=== PATIENT | female | born 1975 | race Caucasian/White ===

== ENCOUNTER 2020-03-16 17:19 | Outpatient (REF) | payer OTHER, SELFPAY | END 2020-03-16 17:20 | disposition home or self-care (01) | LOC: HO.LAB 17:19 | PROVIDERS: Visit Provider Internal Medicine | DX: Z20.828 Contact with and (suspected) exposure to other viral communicable diseases (principal) | CPT/HCPCS: C9803; U0003 ==

== ENCOUNTER → 2022-01-11 08:18 | Outpatient (BNVA) | payer OTHER, SELFPAY | PROVIDERS: PCP Internal Medicine; Visit Provider Psychiatry & Neurology Neurology | DX: R41.89 Other symptoms and signs involving cognitive functions and awareness (principal); R51.9 Headache, unspecified; M54.2 Cervicalgia; G89.29 Other chronic pain | CPT/HCPCS: 99202 ==

== ENCOUNTER → 2022-03-17 13:49 | Outpatient (BNVA) | payer OTHER, SELFPAY | PROVIDERS: PCP Internal Medicine; Visit Provider Nurse Practitioner Family | DX: R41.89 Other symptoms and signs involving cognitive functions and awareness (principal); R51.9 Headache, unspecified; M54.2 Cervicalgia; G89.29 Other chronic pain | CPT/HCPCS: 99212 ==

== ENCOUNTER → 2022-06-09 14:28 | Outpatient (BNVA) | payer OTHER, SELFPAY | PROVIDERS: PCP Internal Medicine; Visit Provider Nurse Practitioner Family | DX: R41.89 Other symptoms and signs involving cognitive functions and awareness (principal); M54.2 Cervicalgia; G89.29 Other chronic pain; R51.9 Headache, unspecified; Z79.899 Other long term (current) drug therapy | CPT/HCPCS: 99212 ==

== ENCOUNTER 2023-02-12 09:19 | Outpatient (AMB) | payer OTHER, SELFPAY ==
--- NOTE | 2023-02-12 09:24 | A.OFFVIS_ITS ---
Intake Vital Signs 02/12/23 09:31 Weight 298 lb 4 oz BP 102/76 Blood Pressure Location Lt brachial Position Sitting Pulse 80 Pulse Source Pulse Oximeter Pulse Oximetry (%) 95 Oxygen Delivery Method Room Air Intake Visit Reasons: FOLLOW UP Intake Note: F/U DOLLY. Yard Assistant Required: No Allergies adhesive Allergy (Intermediate, Verified 02/12/23 09:25) Unknown codeine Allergy (Intermediate, Verified 02/12/23 09:25) Unknown HPI HPI Comments History of Present Illness Details 46 y/o female patient presents for follo w up of chronic headache, cervicalgia and cognitive changes. Pt reports daily pressure headache's frequency has decreased to 3 and milder. She has not have severe headache, uses her prn medicaton rarely. She uses naproxen rarely. But she takes meloxicam for shoulder pain. She is on physical therapy twice a week. Pt reports melatonin caused vivid dreams and she stopped it. She has orthopedic appointment for left shoulder pain next week. She had shoulder ligament tear. Cervical X ray result reviewed. Straightening of the normal cervical lordosis and minimal levoscoliosis can be positional or secondary to muscle spasm. She still can have some expressive difficulties, mixed up words, but no difficulty comprehending, reading and writing. Mixing up words happens more when she has fibromyalgia flare up. She has frequent short term memory issues. she has trouble remembering if she does not write down. She is compliant with CPAP, and followed by Sleep Medicine Services. Pt has routine sleep schedule but has get tiredness in the evening. [facility] Medical History Chronic headaches Endometrial cancer GERD (gastroesophageal reflux disease) Hypothyroid Obesity Obstructive sleep apnea on CPAP Retinoblastoma, bilateral Surgical History H/O right knee surgery H/O: hysterectomy History of facial surgery Family History Mother Diabetes H/O eye surgery Father Diabetes Lung cancer Sister Leiomyosarcoma Social History (Updated 02/12/23 @ 09:31 by Tami Joe CMA) Alcohol intake: current Alcohol intake frequency: holidays/special occasions only Patient Tobacco Use Status: Never used Tobacco Review of Systems Const All systems reviewed & are unremarkable except as noted in HPI and below Physical Exam Vital Signs: Last Vital Signs Pulse 80 02/12/23 09:31 BP 102/76 02/12/23 09:31 Pulse Ox 95 02/12/23 09:31 Oxygen Delivery Method Room Air 02/12/23 09:31 Const General: cooperative and no acute distress Nutritional Appearance: obese morbidly obese Orientation/consciousness: patient oriented x3 HEENT Face and sinus: Yes Flattened naso-labial fold present Throat: Yes other (mallampatti grade 4) Neck Other: severe tightness and tenderness in matt cervical muscles Neuro Other: right eye laterally deviated General: patient oriented x3 Cranial nerves: Yes CN's II-XII intact bilaterally, Yes Nystagmus not present and Yes Normal facial strength present Cognition (Neuro): normal cognition Speech: Other speech findings present (Neuro) (normal) Gait exam (Neuro): Normal gait present Motor exam (neuro): 5/5 motor strength present throughout, Pronator motor fun ction not present, no tremor noted and Normal motor muscle tone present throughout Deep tendon reflexes (DTR's): Right triceps reflex intensity grade: 1+, Left triceps reflex intensity grade: 1+, Rt Biceps (C5, C6): 1+, Left biceps reflex intensity grade: 1+, Right brachioradialis reflex intensity grade: 1+, Left brachioradialis reflex intensity grade: 1+, Right patellar reflex intensity grade: 1+ and Left patellar reflex intensity grade: 1+ Coordination: [id number] test normal Psych Affect: normal affect Assessment & Plan Assessment & Plan (1) Cognitive change: Comment: multifactorial, poor sleep, mood disorder etc Code(s): R41.89 - Other symptoms and signs involving cognitive functions and awareness (2) Cervicalgia: Code(s): M54.2 - Cervicalgia (3) Chronic headaches: Comment: likely cervicogenic Code(s): R51.9 - Headache, unspecified; G89.29 - Other chronic pain Plan Continue to take magneisum 400 mg qHS and baclofen 10 mg qHS. Continue vitamin B2 400 mg q daily. Continue to do PT exercise at home. Medications: Refilled magnesium oxide 400 mg PO BEDTIME 30 tabs 6RF baclofen 10 mg PO BEDTIME 90 tabs 0RF 90 days riboflavin (vitamin B2) 400 mg PO DAILY 30 tabs 3RF 30 days Coding Level of Care Code Est Pt Level 3 (84085) Diagnoses Cognitive change R41.89 Cervicalgia M54.2 Chronic headaches R51.9; G89.29
[2023-02-12 09:31] VITALS: BP 102/76; PULSE 80; O2SAT 95
== END 2023-02-12 09:54 | disposition home or self-care (01) ==
PROVIDERS: PCP Internal Medicine; Visit Provider Nurse Practitioner Family
DX: R41.89 Other symptoms and signs involving cognitive functions and awareness (principal); M54.2 Cervicalgia; R51.9 Headache, unspecified; G89.29 Other chronic pain
CPT/HCPCS: 99213

== ENCOUNTER → 2023-02-12 09:19 | Outpatient (BNVA) | payer OTHER, SELFPAY | PROVIDERS: PCP Internal Medicine; Visit Provider Nurse Practitioner Family | DX: R41.89 Other symptoms and signs involving cognitive functions and awareness (principal); R51.9 Headache, unspecified; M54.2 Cervicalgia; G89.29 Other chronic pain | CPT/HCPCS: 99212 ==

== ENCOUNTER 2023-12-19 10:15 | Outpatient (AMB) | payer OTHER, SELFPAY ==
--- NOTE | 2023-12-19 10:32 | MHC.OFFVIS ---
Vital Signs 12/19/23 10:34 Height 5 ft 1 in Weight 302 lb BMI 57.1 BP 138/82 Blood Pressure Location Rt brachial Position Sitting Pulse 111 H Pulse Source Pulse Oximeter Pulse Oximetry (%) 98 Oxygen Delivery Method Room Air Intake Visit Reasons: FOLLOW UP-LVM Intake Note: Patient presents for follow up Allergies adhesive Allergy (Intermediate, Verified 12/19/23 10:35) Unknown codeine Allergy (Intermediate, Verified 12/19/23 10:35) Unknown Medication List - Last Reconciled 12/19/23 by JUANITA Harding albuterol sulfate 90 mcg/actuation (ProAir HFA) 2 puffs inhalation Q6H PRN baclofen 10 mg PO BEDTIME 90 days diphenhydramine HCl (Benadryl Allergy) 25 mg PO BID PRN epinephrine 0.3 mL IM fluticasone propion-salmeterol 115-21 mcg/actuation (Advair HFA) 2 puffs inhalation BID magnesium oxide 400 mg PO BEDTIME meloxicam 15 mg PO DAILY riboflavin (vitamin B2) 400 mg PO DAILY 30 days HPI Comments Details: 48-yr-old female presents for f/u visit. Pt denies any significant interval medical changes. Pt reports her headaches are well-controlled on Magnesium and Baclofen. She has stopped Riboflavin. Baseline headache characteristics: Often stabbing/pulsating right sided headache a/w photophobia- stabs subsides and stabs again. Lasts 15 min to 1-2 hrs She does still have neck pain. Can have neck tightness, stiffness, soreness, and crunching.The pain may radiate into her left collarbone region. Sometimes she has mid-posterior neck or mid-back electrical pain that moves up into the upper neck, rarely has moved into the base of the head which caused a headache. She has been noticing mid-back muscle spasms in the last 3-4 months. Her right eye has also been twitching recently. Does have some left hand weakness and numbness x's 6-7 months, and then started having left pins/needles/pain r/t left 1st finger nodule and left shoulder labrum/bicep tear. She is f/b [facility]. Denies other muscle cramps. States her STM comes and goes, mixes her words up more. . [facility] Medical History (Updated 12/19/23 @ 11:21 by JUANITA Harding) Anemia Chronic headaches GERD (gastroesophageal reflux disease) Endometrial cancer Retinoblastoma, bilateral Obstructive sleep apnea on CPAP Hypothyroid Obesity Surgical History H/O: hysterectomy H/O right knee surgery History of facial surgery Family History Mother Diabetes H/O eye surgery Father Diabetes Lung cancer Sister Leiomyosarcoma Social History Alcohol intake: current Alcohol intake frequency: holidays/special occasions only Patient Tobacco Use Status: Never used Tobacco Physical Exam Vital Signs: Last Vital Signs Pulse 111 H 12/19/23 10:34 BP 138/82 12/19/23 10:34 Pulse Ox 98 12/19/23 10:34 Oxygen Delivery Method Room Air 12/19/23 10:34 BMI result Body Mass Index 57.1 Const General: cooperative and no acute distress Orientation/consciousness: patient oriented x3 Resp Effort & Inspection: normal respiratory effort and able to speak in complete sentences Neuro Other: Focal right mid-back T-12 region paraspinal tightness and tenderness. LUE MS 4+/5, RUE MS 5/5, BLE MS 5/5 Decreased LUE hand grasp. BUE light and sharp sensation intact. No tremor. No facial twitching appreciated. Bilateral R > L posterior cervical tightness. Negative bilateral Spurling. No palpable scalp tenderness. General: patient oriented x3 Cranial nerves: Yes CN's II-XII intact bilaterally (w/ exception of dysconjugate gaze w/o diplopia) Cognition (Neuro): normal cognition Deep tendon reflexes (DTR's): Right triceps reflex intensity grade: 1+, Left triceps reflex intensity grade: 1+, Rt Biceps (C5, C6): 1+, Left biceps reflex intensity grade: 1+, Right brachioradialis reflex intensity grade: 1+, Left brachioradialis reflex intensity grade: 1+, Right patellar reflex intensity grade: 1+ and Left patellar reflex intensity grade: 1+ Psych Appearance: grossly normal Mental Status: mental status grossly normal Speech and movement: Normal speech and movement present Affect: normal affect Attitude: cooperative Assessment & Plan Assessment & Plan (1) Cervicalgia: Code(s): M54.2 - Cervicalgia Category: Medical (2) Pain and numbness of left upper extremity: Code(s): M79.602 - Pain in left arm; R20.0 - Anesthesia of skin Category: Medical (3) Facial twitching: Code(s): G51.4 - Facial myokymia Category: Medical (4) Cognitive change: Comment: multifactorial, poor sleep, mood disorder etc Code(s): R41.89 - Other symptoms and signs involving cognitive functions and awareness Category: Medical (5) Chronic headaches: Comment: likely cervicogenic Code(s): R51.9 - Headache, unspecified; G89.29 - Other chronic pain Category: Medical Plan For new onset mid-back pain and neck pain: Increase Baclofen to 10-20mg qhs. Will request previous head/neck imaging. Future considerations- f/u back/neck imaging. For LUE pain, numbness, weakness: BUE EMG/NCS For stabbing headache: Continue Baclofen Continue Magnesium 400mg qhs. For facial twitching: Check labs for common etiologies For cognition: Consider neuro-psych tetsing in f/u. Orders: Orders Complete Blood Count Auto Diff Today D64.9 - Anemia, unspecified, G51.4 - Facial myokymia, M79.602 - Pain in left arm, R20.0 - Anesthesia of skin Creatine Kinase Total Today D64.9 - Anemia, unspecified, G51.4 - Facial myokymia, M79.602 - Pain in left arm, R20.0 - Anesthesia of skin Vitamin D 25-OH (D2 and D3) Today D64.9 - Anemia, unspecified, G51.4 - Facial myokymia, M79.602 - Pain in left arm, R20.0 - Anesthesia of skin IRON PROFILE Today D64.9 - Anemia, unspecified, G51.4 - Facial myokymia, M79.602 - Pain in left arm, R20.0 - Anesthesia of skin Ferritin Today D64.9 - Anemia, unspecified, G51.4 - Facial myokymia, M79.602 - Pain in left arm, R20.0 - Anesthesia of skin NE electromyogram (EMG) Today M54.2 - Cervicalgia, M79.602 - Pain in left arm, R20.0 - Anesthesia of skin NE nerve conduction velocity Today M79.602 - Pain in left arm, R20.0 - Anesthesia of skin Comprehensive Met. Panel Today D64.9 - Anemia, unspecified, G51.4 - Facial myokymia, M79.602 - Pain in left arm, R20.0 - Anesthesia of skin Magnesium Today D64.9 - Anemia, unspecified, G51.4 - Facial myokymia, M79.602 - Pain in left arm, R20.0 - Anesthesia of skin Vitamin B12 and Folate Today D64.9 - Anemia, unspecified, G51.4 - Facial myokymia, M79.602 - Pain in left arm, R20.0 - Anesthesia of skin TSH reflex Free T4 Today D64.9 - Anemia, unspecified, G51.4 - Facial myokymia, M79.602 - Pain in left arm, R20.0 - Anesthesia of skin Erythrocyte Sedimentation Rate Today D64.9 - Anemia, unspecified, G51.4 - Facial myokymia, M79.602 - Pain in left arm, R20.0 - Anesthesia of skin Medications: New diclofenac sodium 50 mg PO BID PRN 60 tabs 1RF back pain or headache 30 days Changed From baclofen 10 mg PO BEDTIME 90 days 90 tabs 1RF To baclofen 20 mg (2 x 10 mg) PO BEDTIME 180 tabs 1RF 90 days Coding Level of Care Code Est Pt Level 4 (05575) Diagnoses Cervicalgia M54.2 Pain and numbness of left upper extremity M79.602; R20.0 Facial twitching G51.4 Cognitive change R41.89 Chronic headaches R51.9; G89.29
[2023-12-19 10:34] VITALS: BP 138/82; PULSE 111; O2SAT 98; BMI 57.1
== END 2023-12-19 11:25 | disposition home or self-care (01) ==
PROVIDERS: Absent Provider Nurse Practitioner Family; PCP Internal Medicine; Visit Provider Nurse Practitioner Family
DX: M54.2 Cervicalgia (principal); M79.602 Pain in left arm; R20.0 Anesthesia of skin; G51.4 Facial myokymia; R41.89 Other symptoms and signs involving cognitive functions and awareness; R51.9 Headache, unspecified; G89.29 Other chronic pain
CPT/HCPCS: 99214

== ENCOUNTER → 2023-12-19 10:15 | Outpatient (BNVA) | payer OTHER, SELFPAY | PROVIDERS: Absent Provider Nurse Practitioner Family; PCP Internal Medicine; Visit Provider Nurse Practitioner Family | DX: M54.2 Cervicalgia (principal); M79.602 Pain in left arm; G89.29 Other chronic pain; G51.4 Facial myokymia; R41.89 Other symptoms and signs involving cognitive functions and awareness; R51.9 Headache, unspecified; D64.9 Anemia, unspecified; R20.0 Anesthesia of skin | CPT/HCPCS: 99212 ==

== ENCOUNTER 2023-12-19 11:44 | Outpatient (REF) | payer OTHER, SELFPAY ==
[2023-12-19 18:15] LABS: Eosinophils Percent Auto 0.1 % (0-4); Imm Gran Abs Auto 0.06 X10*3/uL (0.00-0.03); Imm Gran Pct Auto 0.5 % (0.0-0.4); MANUAL DIFF FLAG SCAN; Red Cell Distribution Width 14.7 % (11.0-16.0); SCAN SMEAR FLAG 1
[2023-12-19 18:16] LABS: Basophils Percent Auto 0.3 % (0-2); Hematocrit 45.9 % (37.0-47.0); Hemoglobin 15.6 g/dl (12.0-16.0); Lymphocytes Absolute Auto 1.2 X10*3/uL (1.2-4.9); Lymphocytes Percent Auto 10.6 % (20-40); Mean Corpuscular Hemoglobin 32.1 pg (27.0-33.0); Mean Corpuscular Volume 94.4 fL (80.0-98.0); Monocytes Absolute Auto 0.4 X10*3/uL (0.1-1.2); Monocytes Percent Auto 3.8 % (2-11); Neutrophils Absolute Auto 9.7 x10*3/uL (2.0-8.3); Neutrophils Percent Auto 84.7 % (45-73); PLT CLUMP 1; Red Blood Count 4.86 X10*6/uL (4.20-5.50)
[2023-12-19 18:24] LABS: PLT ABN DIST 1; White Blood Count 11.5 X10*3/uL (4.8-10.8)
[2023-12-19 18:25] LABS: Platelet Count 191 X10*3/uL (160-400)
[2023-12-19 18:36] LABS: Alanine Aminotransferase 27 U/L (0-31); Albumin Level 4.7 g/dL (3.5-5.0); Alkaline Phosphatase 93 U/L (39-117); Anion Gap 15 (12-20); Aspartate Amino Transferase 19 U/L (5-31); Bilirubin Total 0.4 mg/dL (0.0-1.0); Blood Urea Nitrogen 14 mg/dL (9-16); Carbon Dioxide 25 mmol/L (22-29); Chloride 105 mmol/L (96-108); Estimated Glomerular Filt Rate > 60; Glucose Random 248 mg/dL (60-115); Iron 105 mcg/dL (30-160); Percent Iron Saturation 33 % (15-50); Potassium 4.6 mmol/L (3.3-5.1); Sodium 140 mmol/L (135-145); Total Iron Binding Capacity 316 mcg/dL (228-428); Total Protein 8.3 g/dL (6.5-8.0); Unsaturated Iron Binding 211 ug/dL
[2023-12-19 18:44] LABS: Ferritin 165 ng/mL (10-250)
[2023-12-19 18:59] LABS: Folate 7.7 ng/mL (> or = 4.0); Vitamin B12 556 pg/mL (200-900)
[2023-12-19 19:27] LABS: SLIDE REVIEW VERIFIED
[2023-12-19 19:42] LABS: Erythrocyte Sedimentation Rate 9 MM/HR (0-20)
[2023-12-24 14:38] LABS: Vitamin D 25-OH, D2 <4 ng/mL; Vitamin D 25-OH, D3 20 ng/mL; Vitamin D 25-OH, Total 20 ng/mL (30-100)
== END 2023-12-19 11:45 | disposition home or self-care (01) ==
LOC: HO.HKASLDS 11:44
PROVIDERS: Visit Provider Nurse Practitioner Family
DX: D64.9 Anemia, unspecified (principal); G51.4 Facial myokymia; M79.602 Pain in left arm; R20.0 Anesthesia of skin
CPT/HCPCS: 36415; 80053; 82306; 82550; 82607; 82728; 82746; 83540; 83735; 84443; 85025; 85652

== ENCOUNTER 2024-01-04 12:44 | Outpatient (REF) | payer OTHER, SELFPAY ==
--- NOTE | 2024-01-04 12:56 | EMG_ITS ---
Chief complaint: Bilateral hand numbness, left worse than right, affecting 4th and 5th digits; neck pain Reason for referral: Evaluate for ulnar neuropathy versus radiculopathy Referred by: Valeria Cullen NP Procedure done: Upper extremity NCS/EMG Precautions and/or limitations: None The limb temperature was monitored continuously and remained between 32-36 degrees C during the performance of the NCS. Nerve Conduction Studies Anti Sensory Summary Table ?Stim Site NR Onset (ms) Norm Onset (ms) Peak (ms) Norm Peak (ms) O-P Amp (?V) Norm O-P Amp Site1 Site2 Delta-0 (ms) Dist (cm) Mauricio (m/s) Norm Mauricio (m/s) Left Median Anti Sensory (2nd Digit) Wrist ? 2.3 2.8 <3.6 46.7 >10 Wrist 2nd Digit 2.3 14.0 61 Right Median Anti Sensory (2nd Digit) Wrist ? 2.3 2.8 <3.6 47.5 >10 Wrist 2nd Digit 2.3 14.0 61 Right Radial Anti Sensory (Thumb) Forearm ? 1.5 2.2 <3.1 29.5 Forearm Thumb 1.5 0.0 Left Ulnar Anti Sensory (5th Digit) Wrist ? 2.3 2.9 <3.7 33.9 >15.0 Wrist 5th Digit 2.3 14.0 61 Right Ulnar Anti Sensory (5th Digit) Wrist ? 2.3 3.0 <3.7 35.4 >15.0 Wrist 5th Digit 2.3 14.0 61 Motor Summary Table ?Stim Site NR Onset (ms) Norm Onset (ms) O-P Amp (mV) Norm O-P Amp iAmp (mV) Amp (1st) (%) Site1 Site2 Delta-0 (ms) Dist (cm) Mauricio (m/s) Norm Mauricio (m/s) Left Median Motor (Abd Poll Brev) Wrist ? 3.0 <3.9 11.8 >4.5 14.8 100.0 Elbow Wrist 3.4 20.5 60 >45 Elbow ? 6.4 11.9 14.7 100.8 Right Median Motor (Abd Poll Brev) Wrist ? 3.0 <3.9 14.2 >4.5 16.4 100.0 Elbow Wrist 3.1 19.5 63 >45 Elbow ? 6.1 13.5 15.9 95.1 Left Ulnar Motor (Abd Dig Minimi) Wrist ? 2.7 <3.0 7.2 >5 8.6 100.0 B Elbow Wrist 3.0 17.5 58 >45 B Elbow ? 5.7 7.5 8.9 104.2 A Elbow B Elbow 1.5 10.0 67 >45 A Elbow ? 7.2 7.9 9.3 109.7 Right Ulnar Motor (Abd Dig Minimi) Wrist ? 2.7 <3.0 7.3 >5 9.5 100.0 B Elbow Wrist 2.7 17.0 63 >45 B Elbow ? 5.4 7.2 9.4 98.6 A Elbow B Elbow 1.6 10.0 63 >45 A Elbow ? 7.0 6.8 9.1 93.2 EMG ?Side Muscle Nerve Root Ins Act Fibs Psw Amp Dur Poly Recrt Int Pat Comment Right 1stDorInt Ulnar C8-T1 Nml Nml Nml Nml Nml 0 Nml Complete Right FlexCarRad Median C6-7 Nml Nml Nml Nml Nml 0 Nml Complete Right Biceps Musculocut C5-6 Nml Nml Nml Nml Nml 0 Nml Complete Right Triceps Radial C6-7-8 Nml Nml Nml Nml Nml 0 Nml Complete Right Deltoid Axillary C5-6 Nml Nml Nml Nml Nml 0 Nml Complete Left 1stDorInt Ulnar C8-T1 Nml Nml Nml Nml Nml 0 Nml Complete Left FlexCarRad Median C6-7 Nml Nml Nml Nml Nml 0 Nml Complete Left Biceps Musculocut C5-6 Nml Nml Nml Nml Nml 0 Nml Complete Left Triceps Radial C6-7-8 Nml Nml Nml Nml Nml 0 Nml Complete Left Deltoid Axillary C5-6 Nml Nml Nml Nml Nml 0 Nml Complete FINDINGS: All motor and sensory nerves tested showed normal latencies, amplitudes and conduction velocities. Concentric needle EMG was performed in selected muscles of the bilateral upper extremities. Study did not reveal signs of electric abnormalities as shown in the table above. IMPRESSION: 1. This is a normal study. 2. There is no electrodiagnostic evidence for median neuropathy, ulnar neuropathy, brachial plexopathy, or cervical radiculopathy. Thank you for your kind referral. Mary Arguelles MD, MISHEL Board Certified, [place] [employer] and [employer] (ABPMR) Board Certified, [place] [employer] Electrodiagnostic Medicine (ABEM) CODIN 45086 x2 MTDD
== END 2024-01-04 12:45 | disposition home or self-care (01) ==
LOC: HO.NEURO 12:44
PROVIDERS: PCP Internal Medicine; Visit Provider Nurse Practitioner Family
DX: M79.602 Pain in left arm (principal); R20.0 Anesthesia of skin; M54.2 Cervicalgia
CPT/HCPCS: 95886; 95911

== ENCOUNTER → 2024-01-04 12:56 | Outpatient (BNV) | payer OTHER, SELFPAY | PROVIDERS: PCP Internal Medicine; Visit Provider Physical Medicine & Rehabilitation | DX: R20.0 Anesthesia of skin (principal); R20.2 Paresthesia of skin; M54.2 Cervicalgia | CPT/HCPCS: 95886; 95911 ==

== ENCOUNTER 2024-06-17 15:15 | Outpatient (REF) | payer OTHER, SELFPAY ==
--- NOTE | ~2024-06-17 | XR_ITS ---
EXAMINATION: XR THORACIC SPINE CLINICAL INFORMATION: M54.9 - Dorsalgia, unspecified COMPARISON: None available. TECHNIQUE: 3 views of the thoracic spine were obtained. FINDINGS: No scoliosis. Normal kyphosis. No fracture, compression deformity, or suspicious bone lesion. Normal alignment. Mild diffuse degenerative disc changes. There is no abnormality of the paraspinal soft tissues, imaged lungs or mediastinum.. XR/XR thoracic spine 3V IMPRESSION: No acute findings thoracic spine. Mild diffuse disc degeneration. Electronically signed by: Jose Velazco MD 06/18/2024 01:10 PM ROX
--- NOTE | ~2024-06-17 | XR_ITS ---
EXAMINATION: XR LUMBOSACRAL SPINE CLINICAL INFORMATION: M54.9 - Dorsalgia, unspecified COMPARISON: None available. TECHNIQUE: 6 views of the lumbar spine, inclusive of bilateral oblique views, were obtained. FINDINGS: No scoliosis. Normal lordosis. Normal alignment. No fracture, subluxation, or suspicious bone lesion. No compression deformity. Mild disc space degeneration L5-S1. Normal facet alignment. No pars defects. Minimal facet degeneration L4-5 and L5-S1. Sacrum and SI joints appear normal. No soft tissue abnormalities. XR/XR lumbar spine 4V min IMPRESSION: 1. No acute findings lumbar spine. 2. Mild degenerative disc facet changes L4-S1. Electronically signed by: Jose Velazco MD 06/18/2024 12:44 PM ROX
--- NOTE | ~2024-06-17 | XR_ITS ---
EXAMINATION: XR CERVICAL SPINE CLINICAL INFORMATION: M54.2 - Cervicalgia COMPARISON: None available. TECHNIQUE: 6 views of the cervical spine, inclusive of flexion and extension views, were obtained. FINDINGS: Craniocervical junction is intact. Marginal osteophyte formation at C4-5 C5-6 and to a lesser extent C6-7 more conspicuous at C5-6. No acute cortical disruption or malalignment. No gross neuroforamina stenosis. No lytic or blastic lesions. Upper airway is patent. Multiple metallic screws in the maxillofacial bones. XR/XR cervical spine 4V IMPRESSION: Multilevel cervical spondylosis more conspicuous at C5-6. Electronically signed by: Jaylen Sy MD 06/18/2024 12:26 PM EST
--- OUTSIDE RECORDS SUMMARY | 2024-06-17 16:09 | XMS_ITS | Clinical Summary ---
Author Organization [facility] Address [address] [place] [address] Phone Care Team Providers Care Buffer Automatic Name Role Phone Kimberli Mtz MD Primary Care Provider [phone] Allergies Active Allergy Reactions Criticality Noted Date Comments Adhesive Rash 06/20/2022 Surgical adhesives Codeine 07/13/2016 Medications albuterol HFA (PROAIR HFA ; PROVENTIL HFA ; VENTOLIN HFA) 90 mcg/actuation inhaler Inhale 2 Puffs into the lungs every 4 hours as needed. Active baclofen (LIORESAL) 5 mg tablet Take 1 Tablet by mouth at bedtime. Active diphenhydrAMINE (BENADRYL) 25 mg tablet Take 1 Tablet by mouth at bedtime as needed for Itching. 2 Active EPINEPHrine (EpiPen 2-Abraham) 0.3 mg/0.3 mL injection Inject 0.3 mg into the muscle as needed for Other (anaphylactic reaction). 2-pack. Fill with whichever brand is covered by insurance. 2 Active fluticasone propion-salmetero L (ADVAIR DISKUS) 500-50 mcg/dose diskus inhaler Inhale 1 Puff into the lungs every 12 hours. Active magnesium oxide (MAG-OX) 400 mg magnesium tablet Take 1 Tablet by mouth daily. Active meloxicam (MOBIC) 15 mg tablet TAKE 1 TABLET BY MOUTH EVERY DAY 3 Active predniSONE (DELTASONE) 1 mg tablet Take 1 Tablet by mouth daily. Active silver sulfADIAZINE (SILVADENE, SSD) 1 % cream Apply small amount to the wound once daily before dressing with bandaid Active naproxen (NAPROSYN) 500 mg tablet Take 1 Tablet by mouth 2 times daily (with meals). Active Active Problems Problem Noted Date Diagnosed Date Primary osteoarthritis of right knee 03/10/2024 Chronic pain of right knee 03/10/2024 Morbid obesity with BMI of 50.0-59.9, adult 01/28 Hyperlipidemia 03/20/2022 Type 2 diabetes mellitus with morbid obesity Endometrial carcinoma 02/22/2021 Overview (02/11/2024): 02/17 [facility] COVID-19 virus infection 07/06/2020 Overview (02/11/2024): Tested positive on 07/06/2020 Arthritis 06/23/2020 Overview (02/11/2024): R knee, bilat hands Asthma 06/23/2020 Elevated LFTs 06/23/2020 Overview (02/11/2024): 05/2020 Fibromyalgia 06/23/2020 Overview (02/11/2024): She notes rheum thinks nerve issues in legs related to fibromyalgia Hypothyroidism 06/23/2020 Overview (02/11/2024): Used to be on levothyroxine, off med for 4-5 years Leg numbness 06/23/2020 Overview (02/11/2024): nerve problems DOLLY (obstructive sleep apnea) 06/23/2020 Overview (02/11/2024): On CPAP, managed in [place] [facility] 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 Diagnosed at , s/p radiation. Follows with eye doctor Venous insufficiency of both lower extremities 0 06/23/2020 Encounters Date Type Department Care Team Description 03/26/2024 1:30 PM EST Procedure visit Orthopedic Surgery - [place] [address] [place] [id number] Franchesca Rea PA Primary osteoarthritis of right knee (Primary Dx); Chronic pain of right knee 03/19/2024 1:30 PM EST Procedure visit Orthopedic Surgery - [place] [address] [place] [phone] Franchesca Rea PA Primary osteoarthritis of right knee (Primary Dx); Chronic pain of right knee from Last 3 Months Immunizations Name Administration Dates Next Due Influenza trivalent, 0.5mL, preservative free (Fluarix; FluLaval; Fluzone) ages 6mo and older (Afluria) 3 years and older 02/05/2020 Pneumococcal polysaccharide 23 valent (Pneumovax 23) 2yo and older 05/24/2022 Tdap Tetanus diptheria acell ular pertussis (Boostrix; Adacel) 7yo and older 07/12/2022 Surgical History Surgery Date Site/Laterality Comments OTHER SURGICAL HISTORY PROCEDURE: ---- OTHER ----; COMMENT: 4 costmetic surgeries due to radiation, involving bone KNEE ARTHROSCOPY 2008 Right PROCEDURE: LA ARTHROSCOPY AID TX SPINE&/FX KNEE W/O FIXJ HYSTEROSCOPY 04/28/2016 PROCEDURE: LA HYSTEROSCOPY BX ENDOMETRIUM&/POLYPC W/WO D&C; COMMENT: Polypectomy, endometrial ablation OTHER SURGICAL HISTORY 01/2021 PROCEDURE: LA TOTAL ABDOMINAL HYSTERECT W/WO RMVL TUBE OVARY; COMMENT: with BSO, endometrial carcinoma Medical History Medical History Date Comments Hypothyroid DX:Hypothyroid Asthma DX:Asthma COVID-19 virus infection 07/06/2020 DX:COVI D-19 virus infection; COMMENT: Tested positive on 07/06/2020 Endometrial carcinoma (CMS/HCC) 02/22/2021 DX:Endometrial carcinoma (HCC); COMMENT: 02/17 [facility] Family History Medical History Relation Name Comments Basal cell carcinoma Father Diabetes Father type II, diet c ontrolled Lung cancer Father tobacco Basal cell carcinoma Mother Diabetes Mother Type II, diet c ontrolled Other: retinoblastoma Mother Breast cancer Sister 1 Doris 50 Other: Leiomyosarcoma Sister 2 Other: retinoblastoma Sister 2 Relation Name Status Comments Father Mother Sister 1 Doris 50 Alive Sister 2 Alive Social History Tobacco Use Types Packs/Day Years Used Date Smoking Tobacco: Never Smokeless Tobacco: Never Alcohol Use Standard Drinks/Week Comments Yes 0 (1 standard drink = 0.6 oz pur e alcohol) Comments Unknown Sex and Gender Information Value Date Recorded Sex Assigned at Not on file Legal Sex Female 12:03 AM EST Gender Identity Not on file Sexual Orientation Not on file Obstetrics History Last Filed Vital Signs Vital Sign Reading Time Taken Comments Blood Pressure 124/77 02/23/2023 11:36 AM EDT Pulse 58 02/23/2023 11:36 AM EDT Temperature - - Respiratory Rate - - Oxygen Saturation - - Inhaled Oxygen Concentration - - Weight 134 kg (296 lb) 03/26/2024 1:48 PM EST Height 152.4 cm (5') 03/26/2024 1:48 PM EST Body Mass Index 57.81 03/26/2024 1:48 PM EST Plan of Treatment Health Maintenance Due Date Last Done Comments Diabetes: Annual Foot Exam 1986 Diabetes: Annual Retina Eye Exam 1986 Hepatitis B Vaccines (1 of 3 - 19+ 3-dose series) 08/02/1995 COVID-19 Vaccine (3 - Pfizer risk series) 10/06/2020 09/08/2020, 08/18/2020 Colorectal Cancer Screening: Colonoscopy 04/08/2022 Depression Screening 04/08/2022 HIV Screening 04/08/2022 Hepatitis C Screening 04/08/2022 Social Influencers of Health Screening 04/08/2022 Diabetes: Blood Sugar Contro l Test (HGBA1C) 11/21/2022 05/24/2022 Diabetes: Annual GFR (Glomerular Filtration Rate) 03/20/2023 03/20/2022 Pneumococcal Vaccine: Pediatrics (0 to 5 Years) and At-Risk Patients (6 to 64 Years) (2 of 2 - PCV) 05/24/2023 05/24/2022 Diabetes: Annual Urine Albumin-Creatinine Ratio (uACR) 07/13/2023 07/12/2022 Influenza Vaccine (#1) 2023 02/05/2020 Breast Cancer Screening 07/17/2025 07/18/19, 04/03/2018 Cholesterol Screening (Lipid Panel) 03/20/2027 03/20/2022 DTaP,Tdap,and Td Vaccines (2 - Td or Tdap) 07/12/2032 07/12/2022 HIB Vaccines Aged Out No longer eligi ble based on patient's age to complete this topic HPV Vaccines Aged Out No longer eligi ble based on patient's age to complete this topic Hepatitis A Vaccines Aged Out No long er eligible based on patient's age to complete this topic IPV Vaccines Aged Out No longer eligi ble based on patient's age to complete this topic MMR Vaccines Aged Out No longer eligi ble based on patient's age to complete this topic Meningococcal ACWY Vaccine Aged Out N o longer eligible based on patient's age to complete this topic Meningococcal B Vacine Aged Out No lo nger eligible based on patient's age to complete this topic RSV Immunization Patients Under 20 months Aged Out No longer eligible b ased on patient's age to complete this topic Varicella Vaccines Aged Out No longer eligible based on patient's age to complete this topic Procedures Procedure Name Priority Date/Time Associated Diagnosis Comments LA ARTHROCENTESIS/ASPI RATION/INJECTION MAJOR JOINT/BURSA W/O U/S GUIDANCE Routine 03/26/2024 1:30 PM EST Primary osteoarthritis of right knee Chronic pain of right knee LA ARTHROCENTESIS/ASPI RATION/INJECTION MAJOR JOINT/BURSA W/O U/S GUIDANCE Routine 03/19/2024 1:30 PM EST Primary osteoarthritis of right knee Chronic pain of right knee [facility] SCREENING DIGITAL Routine 07/18/2023 3:35 PM EDT Encounter for screening mammogram for malignant neoplasm of breast URINE ALBUMIN CREATININE RATIO Routine 07/12/2022 HEMOGLOBIN A1C Routine 05/24/2022 ANNUAL BMP BLOOD TEST Routine 03/20/2022 LIPID PANEL Routine 03/20/2022 from Last 3 Months or Most Recently Relevant to Health Maintenance Results * LA ARTHROCENTESIS/ASPIRATION/INJECTION MAJOR JOINT/BURSA W/O U/S GUIDANCE (03/26/2024 1:30 PM EST) Narrative Franchesca Rea PA - 03/26/2024 1:30 PM EST SAMANTA Wan ? 03/26/2024 ??2:03 PM L Inj/Asp: R knee Indications: pain Details: 22 G needle, anteromedial approach Medications: 20 mg sodium hyaluronate (viscosup) 10 mg/mL(mw 2.4 -3.6 million) Informed Consent: ??Laterality: ??Right ??Relevant images/test results available and reviewed: no ?Health status cleared: ??N/A ??Procedure/treatment, purpose, treatment alternatives, risks/potential complications and benefits explained: yes ?Risk/complications/benefits details: ??Risks and benefits associated with the injection reviewed which can include but not limited to infection, bleeding, bruising, transient synovitis, no improvement in symptoms. ??Patient questions answered: yes ?Patient agrees, verbalizes understanding, and wants to proceed: yes ?Consent given by: ??Patient ??Informed consent discussion completed by Physician/SCOTTY with patient: ?? Verbal ??Pre-procedure timeout performed: yes ?? us Franchesca [facility]/BEDSIDE ORDERABLES Final Result * LA ARTHROCENTESIS/ASPIRATION/INJECTION MAJOR JOINT/BURSA W/O U/S GUIDANCE (03/19/2024 1:30 PM EST) Narrative Franchesca Rea PA - 03/19/2024 1:30 PM EST SAMANTA Wan ? 03/19/2024 ??1:42 PM L Inj/Asp: R knee Indications: pain Details: 22 G needle, anteromedial approach Medications: 20 mg sodium hyaluronate (viscosup) 10 mg/mL(mw 2.4 -3.6 million) Informed Consent: ??Laterality: ??Right ??Relevant images/test results available and reviewed: no ?Health status cleared: ??N/A ??Procedure/treatment, purpose, treatment alternatives, risks/potential complications and benefits explained: yes ?Risk/complications/benefits details: ??Risks and benefits associated with the injection reviewed which can include but not limited to infection, bleeding, bruising, transient synovitis, no improvement in symptoms. ??Patient questions answered: yes ?Patient agrees, verbalizes understanding, and wants to proceed: yes ?Consent given by: ??Patient ??Informed consent discussion completed by Physician/SCOTTY with patient: ?? Verbal ??Pre-procedure timeout performed: yes ?? us Franchesca [facility]/BEDSIDE ORDERABLES Final Result * JODY SCREENING DIGITAL (07/18/2023 3:35 PM EDT) Anatomical Region Laterality Modality Mammography 07/18/2023 11:0 0 AM EDT Narrative 07/18/2023 3:35 PM EDT [facility] Diagnostic Imaging Department [address] [place] [id number] Patient: ??SUSAN HOBBS ?/Age/Sex: 1975 - 47 - F Unit#: ??[id number] ? Location/Status: ??SPDIMAM/REG CLI ? Mnemonic/Ordering Site: ??DIGSC/SPMAM Ordering Physician: ??KIMBERLI MTZ MD Jody Screening Digital - 07/18/23 - 1123 Report Status:Signed EXAM: [facility] Screening Digital EXAM DATE AND TIME: 07/18/2023 11:24 AM HISTORY: ??Screening. Personal history of endometrial carcinoma. Family history of breast carcinoma including sister at age 49, maternal aunt and maternal grandmother. COMPARISON: ??05/08/22, 11/02/21, 05/03/21, 04/03/18 TECHNIQUE: Bilateral digital breast tomosynthesis was performed in the CC and MLO projections. Computer aided detection with [facility] 3D 3.1 was employed. TISSUE DENSITY: b. There are scattered areas of fibroglandular density. FINDINGS: No suspicious masses, grouped microcalcifications, or areas of architectural distortion are seen. The skin and vascularity are unremarkable. IMPRESSION: Stable mammographic appearance of the breasts. ??No evidence of malignancy is seen. A negative mammogram in the presence of a clinically suspicious palpable abnormality does not preclude the possibility of malignancy or alter the indications for biopsy. BI-RADS: ??Category 1: Negative RECOMMENDATION(S): 1: Routine screening mammogram BILATERAL in 1 year. Dictating Physician: ??SHANELLE AGUERO MD Electronically Signed by: ??SHANELLE AGUERO MD Dic Date/Time: ??07/18/23 1534 Sign date/Time: ??07/18/23 1535 Procedure Note Shanelle Aguero MD - 12/17/2023 [facility] Diagnostic Imaging Department [address] [place] [address] Patient: MORRO HOBBSSA Martinez /Age/Sex: 1975 - 47 - F Unit#: [id number] Location/Status: [facility] CLI Mnemonic/Ordering Site: [facility] Ordering Physician: KIMBERLI MTZ MD [facility] Screening Digital - 07/18/23 - 1123 Report Status:Signed EXAM: [facility] Screening Digital EXAM DATE AND TIME: 07/18/2023 11:24 AM HISTORY: Screening. Personal history of endometrial carcinoma. Familyhistory of breast carcinoma including sister at age 49, maternal aunt andmaternal grandmother. COMPARISON: 05/08/22, 11/02/21, 05/03/21, 04/03/18 TECHNIQUE: Bilateral digital breast tomosynthesis was performed in the CCand MLO projections. Computer aided detection with [employer] 3D 3.1was employed. TISSUE DENSITY: b. There are scattered areas of fibroglandular density. FINDINGS: No suspicious masses, grouped microcalcifications, or areas ofarchitectural distortion are seen. The skin and vascularity are unremarkable. IMPRESSION: Stable mammographic appearance of the breasts. No evidence of malignancyis seen. A negative mammogram in the presence of a clinically suspicious palpable abnormality does not preclude the possibility of malignancy or alter the indications for biopsy. BI-RADS: Category 1: Negative RECOMMENDATION(S): 1: Routine screening mammogram BILATERAL in 1 year. Dictating Physician: SHANELLE AGUERO MD Electronically Signed by: SHANELLE AGUERO MD Dic Date/Time: 07/18/23 1534 Sign date/Time: 07/18/23 1535 Kimberli Mtz MD IMG BI PROCEDURES Final Result * Urine Albumin Creatinine Ratio (07/12/2022) Pathologist [facility] Urine Albumin Creatinine Ratio Abstracted Historical Provider HEALTH MAINTENANCE Final Result * (ABNORMAL) Hemoglobin A1c (05/24/2022) Hemoglobin A1C 6.8(A) <=6.5 % Blood Venous blood specimen / Unknown Historical Provider LAB BLOOD ORDERABLES Clarice l Result * Annual BMP Blood Test (03/20/2022) Pathologist [facility] Annual BMP Blood Test Abstracted Historical Provider HEALTH MAINTENANCE Final Result * (ABNORMAL) Lipid panel (03/20/2022) Pathologist [facility] LDL/HDL Ratio 5(A) 0 - 4 Triglycerides 175(A) 0 - 150 mg/dL Cholesterol 236(A) 0 - 200 mg/dL HDL 52 >=40 mg/dL LDL Cholesterol 149(A) 0 - 100 mg/dL Blood Venous blood specimen / Unknown Historical Provider LAB BLOOD ORDERABLES Clarice l Result from Last 3 Months or Most Recently Relevant to Health Maintenance Insurance [facility] [employer] Advance Directives Documents on File Type Date Recorded 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 Health Care Decision (hx) 02/09/2021 AD REYES DIRECTIVE Health Care Decision (hx) 02/09/2021 AD REYES DIRECTIVE Health Care Decision (hx) 02/09/2021 AD REYES DIRECTIVE Health Care Decision (hx) 02/09/2021 AD REYES DIRECTIVE Health Care Decision (hx) 02/09/2021 AD REYES DIRECTIVE Health Care Decision (hx) 02/09/2021 AD REYES DIRECTIVE Health Care Decision (hx) 02/09/2021 AD REYES DIRECTIVE Health Care Decision (hx) 02/09/2021 AD REYES DIRECTIVE Health Care Decision (hx) 02/09/2021 AD REYES DIRECTIVE Health Care Decision (hx) 02/09/2021 AD REYES DIRECTIVE Health Care Decision (hx) 02/09/2021 AD REYES DIRECTIVE Health Care Decision (hx) 02/09/2021 AD REYES DIRECTIVE Health Care Decision (hx) 02/09/2021 AD REYES DIRECTIVE Health Care Decision (hx) 02/09/2021 AD REYES DIRECTIVE Health Care Decision (hx) 02/09/2021 AD REYES DIRECTIVE Care Teams Buffer Automatic Relationship Specialty Start Date End Date Kimberli Mtz MD [address] [place] [phone] PCP - General Internal Medicine 09/10/20
== END 2024-06-17 15:16 | disposition home or self-care (01) ==
LOC: HO.HMGCX 15:15
PROVIDERS: PCP Internal Medicine; Visit Provider Nurse Practitioner Family
DX: M54.9 Dorsalgia, unspecified (principal); M54.2 Cervicalgia; M62.830 Muscle spasm of back
CPT/HCPCS: 72050; 72072; 72110

== ENCOUNTER → 2024-06-17 15:20 | Outpatient (BNV) | payer OTHER, SELFPAY | PROVIDERS: PCP Internal Medicine; Visit Provider Radiology Diagnostic Radiology | DX: M47.892 Other spondylosis, cervical region (principal); M54.9 Dorsalgia, unspecified | CPT/HCPCS: 72050; 72072; 72110 ==

== ENCOUNTER 2024-06-27 13:15 | Outpatient (AMB) | payer OTHER, SELFPAY ==
--- NOTE | 2024-06-27 13:18 | AM.OFFVISNUR ---
Intake Visit Reasons: Follow up 6mo Allergies adhesive Allergy (Intermediate, Verified 12/19/23 10:35) Unknown codeine Allergy (Intermediate, Verified 12/19/23 10:35) Unknown Coding
[2024-06-27 13:23] VITALS: BMI 57.6
--- NOTE | 2024-06-27 13:29 | MHC.OFFVIS ---
Vital Signs 06/27/24 13:23 06/27/24 13:30 06/27/24 13:31 Height 5 ft 1 in 5 ft 1 in Weight 305 lb 305 lb BMI 57.6 57.6 57.6 BP 110/80 Blood Pressure Location Lt brachial Position Sitting Pulse 77 Pulse Source Pulse Oximeter Pulse Oximetry (%) 94 Oxygen Delivery Method Room Air Intake Visit Reasons: Follow up 6mo Intake Note: Patient presents follow up Cervicalgia Labs/EMG in chart Coupon Clerk Required: No Accompanied by: Self / Same As Patient Allergies adhesive Allergy (Intermediate, Verified 06/27/24 13:31) Unknown codeine Allergy (Intermediate, Verified 06/27/24 13:31) Unknown Medication List - Last Reconciled 06/27/24 by JUANITA Harding albuterol sulfate 90 mcg/actuation (ProAir HFA) 2 puffs inhalation Q6H PRN baclofen 20 mg (2 x 10 mg) PO BEDTIME 90 days cholecalciferol (vitamin D3) 25 mcg PO DAILY 30 days diclofenac sodium 50 mg PO BID PRN 30 days diphenhydramine HCl (Benadryl Allergy) 25 mg PO BID PRN epinephrine 0.3 mL IM fluticasone propion-salmeterol 115-21 mcg/actuation (Advair HFA) 2 puffs inhalation BID magnesium oxide 400 mg PO BEDTIME 90 days meloxicam 15 mg PO DAILY riboflavin (vitamin B2) 400 mg PO DAILY 30 days HPI Comments Details: The patient is a 48-year-old female presenting with headaches, back pain. However, today patient also reports breathing issues which are treating provider does not feel the secondary to her asthma. Headaches occur twice a month and vary in intensity, likely worsened by stress. She has episodic shortness of breath, previously treated effectively with prednisone, unrelated to infections. Difficulty swallowing and double vision asynchronously accompany respiratory symptoms. Her pulmonary assessments did not support asthma exacerbation explanations for breathing episodes. Since the last visit, patient had reached out about the worsening back pain.. Interval neck and back imaging show minor degenerative changes. Suspected myasthenia gravis as possible underlying factor due to muscle weakness and shortness of breath episodes. Previous shoulder injuries include labrum and biceps tears on the left side. Medication includes baclofen and magnesium, supplemented by physical therapy for back and shoulder pain management. Review of Systems - Neurological: Reports episodic double vision, facial twitching, and headache; denies persistent weakness or eyelid droop. - Musculoskeletal: Reports mid-back pain and spasms; denies generalized weakness. - Respiratory: Reports intermittent shortness of breath; denies respiratory illnesses during episodes. - Gastrointestinal: Reports difficulty swallowing periodically. - Sensory: Reports occasionageneralized photophobia. - Speech: some word-finding difficulty. - Mood: Increased emotional sensitivity noted. - Affect: Labile, reported low patience.Headache Review Medication History - Baclofen for muscle spasms; uses at night, does not notice sleepiness as a side effect.. - Magnesium supplement for unspecified reasons; compliance not noted. - Prednisone during asthma exacerbations; positive response noted. - No adverse reactions discussed. Headache Lifestyle Factors - Caffeine: Drinks coffee twice a week. - Hydration: Consumes around 80 ounces of fluid daily. - Sleep: Uses a CPAP machine consistently. Employment - Not currently employed. Diagnostic results - 06/17/2023: XR Cervical: Marginal osteophyte formation at C4-5 C5-6 and to a lesser extent C6-7 more conspicuous at C5-6. XR thoracic: No acute findings thoracic spine. Mild diffuse disc degeneration. XR Lumbar: Normal facet alignment. No pars defects. Minimal facet degeneration L4-5 and L5-S1. Mild disc space degeneration L5-S1. - 01/04/2024, BUE EMG/NCS- normal 12/19/2023 HPI: Pt denies any significant interval medical changes. Pt reports her headaches are well-controlled on Magnesium and Baclofen. She has stopped Riboflavin. Baseline headache characteristics: Often stabbing/pulsating right sided headache a/w photophobia- stabs subsides and stabs again. Lasts 15 min to 1-2 hrs She does still have neck pain. Can have neck tightness, stiffness, soreness, and crunching.The pain may radiate into her left collarbone region. Sometimes she has mid-posterior neck or mid-back electrical pain that moves up into the upper neck, rarely has moved into the base of the head which caused a headache. She has been noticing mid-back muscle spasms in the last 3-4 months. Her right eye has also been twitching recently. Does have some left hand weakness and numbness x's 6-7 months, and then started having left pins/needles/pain r/t left 1st finger nodule and left shoulder labrum/bicep tear. She is f/b [facility]. Denies other muscle cramps. States her STM comes and goes, mixes her words up more. . [facility] Medical History (Updated 06/27/24 @ 14:01 by JUANITA Harding) Anemia Chronic headaches GERD (gastroesophageal reflux disease) Endometrial cancer Retinoblastoma, bilateral Obstructive sleep apnea on CPAP Hypothyroid Obesity Surgical History H/O: hysterectomy H/O right knee surgery History of facial surgery Family History Mother Diabetes H/O eye surgery Father Diabetes Lung cancer Sister Leiomyosarcoma Social History Alcohol intake: current Alcohol intake frequency: holidays/special occasions only Patient Tobacco Use Status: Never used Tobacco Physical Exam Vital Signs: Last Vital Signs Pulse 77 06/27/24 13:30 BP 110/80 06/27/24 13:30 Pulse Ox 94 06/27/24 13:30 Oxygen Delivery Method Room Air 06/27/24 13:30 BMI result Body Mass Index 57.6 Const General: cooperative and no acute distress Orientation/consciousness: patient oriented x3 Resp Effort & Inspection: normal respiratory effort and able to speak in complete sentences Neuro Other: Focal right mid-back T-12 region paraspinal tightness and tenderness. LUE MS 4+/5, RUE MS 5/5, BLE MS 5/5 Decreased LUE hand grasp. BUE light and sharp sensation intact. No tremor. No facial twitching appreciated. Bilateral R > L posterior cervical tightness. Negative bilateral Spurling. No palpable scalp tenderness. General: patient oriented x3 Cranial nerves: Yes CN's II-XII intact bilaterally (w/ exception of dysconjugate gaze w/o diplopia) Cognition (Neuro): normal cognition Deep tendon reflexes (DTR's): Right triceps reflex intensity grade: 1+, Left triceps reflex intensity grade: 1+, Rt Biceps (C5, C6): 1+, Left biceps reflex intensity grade: 1+, Right brachioradialis reflex intensity grade: 1+, Left brachioradialis reflex intensity grade: 1+, Right patellar reflex intensity grade: 1+ and Left patellar reflex intensity grade: 1+ Psych Appearance: grossly normal Mental Status: mental status grossly normal Speech and movement: Normal speech and movement present Affect: normal affect Attitude: cooperative Assessment & Plan Assessment & Plan (1) Diplopia: Code(s): H53.2 - Diplopia Category: Medical (2) SOB (shortness of breath): Code(s): R06.02 - Shortness of breath Category: Medical (3) Cervicalgia: Code(s): M54.2 - Cervicalgia Category: Medical (4) Pain and numbness of left upper extremity: Code(s): M79.602 - Pain in left arm; R20.0 - Anesthesia of skin Category: Medical (5) Facial twitching: Code(s): G51.4 - Facial myokymia Category: Medical (6) Cognitive change: Comment: multifactorial, poor sleep, mood disorder etc Code(s): R41.89 - Other symptoms and signs involving cognitive functions and awareness Category: Medical (7) Chronic headaches: Comment: likely cervicogenic Code(s): R51.9 - Headache, unspecified; G89.29 - Other chronic pain Category: Medical Plan Discussion Notes I discussed with the patient the suspected diagnosis of myasthenia gravis and explained the significance of lab tests required to confirm this condition. I elaborated on the treatment modalities available, should results be positive, and the procedural steps involved. Consent for blood testing was obtained. Follow-up was planned after lab results, with further management options to be considered based on outcomes. The need to continue to manage and treat her headache symptoms was emphasized. Reviewed winn-spine X-rays showing mild degenerative changes and BUE EMG/NCS normal results. The ongoing management of her back pain with physical therapy and baclofen adjustments was explained, emphasizing adherence to prescribed medication. The patient was advised to seek consultation if her symptoms worsen or new symptoms arise. Patient was informed and verbally consented to the use of an ambient scribe for clinic note documentation during this visit. Plan For episodes of SOB and weakness: - Undergo lab tests for myasthenia gravis at [facility] at your convenience. - Maintain adequate hydration, avoiding excessive fluid intake. For back pain: - Attend physical therapy sessions as arranged for back pain management. - Adjust baclofen dosing as discussed to minimize muscle spasms. For stabbing headache: -Contiue Riboflavin 400mg qam - Continue Magnesium 400mg qhs. - Continue to monitor headaches, and note any changes in patterns or severity. For facial twitching: - Labs revealed vit D def- continue supplement. For cognition: - Consider neuro-psych tetsing in f/u. General: - Follow up with results in the patient portal and seek medical advice if symptoms exacerbate or new issues develop. Will follow-up upon review of above and patient to follow-up in clinic in 6 months or sooner prn. Orders: Orders Acetylcholine Receptor Binding 06/27/24 H53.2 - Diplopia, R06.02 - Shortness of breath, R53.1 - Weakness Acetylcholine Recept. Blocking 06/27/24 G51.4 - Facial myokymia, H53.2 - Diplopia, R06.02 - Shortness of breath, R53.1 - Weakness Acetylcholine Track Subway Repair Supervisor Modulating 06/27/24 G51.4 - Facial myokymia, H53.2 - Diplopia, R06.02 - Shortness of breath, R53.1 - Weakness MuSK Antibody 06/27/24 G51.4 - Facial myokymia, H53.2 - Diplopia, R06.02 - Shortness of breath, R53.1 - Weakness PT Evaluation and Treatment 06/27/24 M62.830 - Muscle spasm of back, M54.9 - Dorsalgia, unspecified Coding Level of Care Code Est Pt Level 4 (09802) Diagnoses Diplopia H53.2 SOB (shortness of breath) R06.02 Cervicalgia M54.2 Pain and numbness of left upper extremity M79.602; R20.0 Facial twitching G51.4 Cognitive change R41.89 Chronic headaches R51.9; G89.29
[2024-06-27 13:30] VITALS: BP 110/80; PULSE 77; O2SAT 94; BMI 57.6
[2024-06-27 13:31] VITALS: BMI 57.6
--- OUTSIDE RECORDS SUMMARY | 2024-06-27 15:18 | XMS_ITS | Clinical Summary ---
Author Organization [address] [facility] Address [address] [place] [address] Phone Care Team Providers Care Inspector Assembly Name Role Phone Kimberli Mtz MD Primary Care Provider [phone] Allergies Active Allergy Reactions Criticality Noted Date [...] wound once daily before dressing with bandaid 3 Active naproxen (NAPROSYN) 500 mg tablet Take 1 Tablet by mouth 2 times daily (with meals). Active Active Problems Problem Noted Date Diagnosed Date Primary osteoarthritis of right knee 03/10/2024 Chronic pain of right knee 03/10/2024 Morbid obesity with BMI of 50.0-59.9, adult 01/28 Hyperlipidemia 03/20/2022 Type 2 diabetes mellitus with morbid obesity Endometrial carcinoma 02/22/2021 Overview (02/11/2024): 02/17 [facility] BSO COVID-19 virus infection 07/06/2020 Overview [...] 06/23/2020 Overview (02/11/2024): On CPAP, managed in [place] on [facility], [facility] 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 Diagnosed at , s/p radiation. Follows with eye doctor Venous insufficiency of both lower extremities 0 06/23/2020 Immunizations Name Administration Dates Next Due Influenza [...] due to radiation, involving bone KNEE ARTHROSCOPY 2007 Right PROCEDURE: PA ARTHROSCOPY AID TX SPINE&/FX KNEE W/O FIXJ HYSTEROSCOPY 04/28/2016 PROCEDURE: PA HYSTEROSCOPY BX ENDOMETRIUM&/POLYPC W/WO D&C; COMMENT: Polypectomy, endometrial ablation OTHER SURGICAL HISTORY 01/2021 PROCEDURE: PA TOTAL ABDOMINAL HYSTERECT W/WO RMVL TUBE OVARY; COMMENT: with BSO, endometrial carcinoma Medical History Medical History Date Comments Hypothyroid DX:Hypothyroid Asthma DX:Asthma COVID-19 virus infection 07/06/2020 DX:COVI D-19 virus infection; COMMENT: Tested positive on 07/06/2020 Endometrial carcinoma (CMS/HCC) 02/22/2021 DX:Endometrial carcinoma (HCC); COMMENT: 02/17 [facility] BSO Family History Medical History Relation [...] Procedure Name Priority Date/Time Associated Diagnosis Comments [facility] SCREENING DIGITAL Routine 07/18/2023 3:35 PM EDT Encounter for screening mammogram for malignant neoplasm of breast URINE ALBUMIN CREATININE RATIO Routine 07/12/2022 HEMOGLOBIN A1C Routine 05/24/2022 ANNUAL BMP BLOOD TEST Routine 03/20/2022 LIPID PANEL Routine 03/20/2022 from Last 3 Months or Most Recently Relevant to Health Maintenance Results * JODY SCREENING DIGITAL (07/18/2023 3:35 PM EDT) Anatomical Region Laterality Modality Mammography 07/18/2023 11:0 0 AM EDT Narrative 07/18/2023 3:35 PM EDT [facility] Diagnostic Imaging Department [address] [place], [place] [address] Patient: ??SUSAN HOBBS ?/Age/Sex: 1975 - 47 - F Unit#: ??[id number] ? Location/Status: ??SPDIMAM/REG CLI ? Mnemonic/Ordering Site: [...] and MLO projections. Computer aided detection with [employer] 3D 3.1 was employed. TISSUE DENSITY: b. [...] Dic Date/Time: ??07/18/23 1534 Sign date/Time: ??07/18/23 153 Procedure Note Shanelle Aguero MD - 12/17/2023 [facility] Diagnostic Imaging Department [address] [place] [address] [id number] Patient: SUSAN HOBBS /Age/Sex: 1975 - 47 - F Unit#: [id number] Location/Status: SPDIMAM/REG CLI Mnemonic/Ordering Site: [facility] Ordering Physician: KIMBERLI MTZ MD [facility] Screening Digital - 07/18/23 - 1123 Report Status:Signed EXAM: [facility] Screening Digital EXAM DATE AND TIME: 07/18/2023 11:24 AM HISTORY: Screening. Personal history of endometrial carcinoma. Familyhistory of breast carcinoma including sister at age 49, maternal aunt andmaternal grandmother. COMPARISON: 05/08/22, 11/02/21, 05/03/21, 04/03/18 TECHNIQUE: Bilateral digital breast tomosynthesis was performed in the CCand MLO projections. Computer aided detection with [employer] 3D 3.1was employed. TISSUE DENSITY: b. There [...] Signed by: SHANELLE AGUERO MD Dic Date/Time: 07/18/231533 Sign date/Time: 07/18/231534 Kimberli Mtz MD IMG BI PROCEDURES Final Result * HM Urine Albumin Creatinine Ratio (07/12/2022) [facility] U[facility] Albumin Creatinine Ratio Abstracted Historical Provider HEALTH MAINTENANCE Final Result * (ABNORMAL) Hemoglobin A1c (05/24/2022) Pathologist [facility] Hemoglobin A1C 6.8(A) <=6.5 % Blood Venous blood specimen / Unknown [facility] Provider LAB BLOOD ORDERABLES Clarice l Result * Annual BMP Blood Test (03/20/2022) [facility] Annual BMP Blood Test Abstracted [facility] Provider HEALTH MAINTENANCE Final Result * (ABNORMAL) Lipid panel (03/20/2022) Pathologist [facility] LDL/HDL Ratio 5(A) 0 - 4 Triglycerides 175(A) 0 - 150 mg/dL Cholesterol 236(A) 0 - 200 mg/dL HDL 52 >=40 mg/dL LDL Cholesterol 149(A) 0 - 100 mg/dL Blood Venous blood specimen / Unknown Result 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
== END 2024-06-27 14:07 | disposition home or self-care (01) ==
PROVIDERS: PCP Internal Medicine; Visit Provider Nurse Practitioner Family
DX: H53.2 Diplopia (principal); R06.02 Shortness of breath; M54.2 Cervicalgia; M79.602 Pain in left arm; R20.0 Anesthesia of skin; G51.4 Facial myokymia; R41.89 Other symptoms and signs involving cognitive functions and awareness; R51.9 Headache, unspecified; G89.29 Other chronic pain
CPT/HCPCS: 99214

== ENCOUNTER → 2024-06-27 13:15 | Outpatient (BNVA) | payer OTHER, SELFPAY | PROVIDERS: PCP Internal Medicine; Visit Provider Nurse Practitioner Family | DX: H53.2 Diplopia (principal); R06.02 Shortness of breath; M54.2 Cervicalgia; M79.602 Pain in left arm; R20.0 Anesthesia of skin; G51.4 Facial myokymia; R41.89 Other symptoms and signs involving cognitive functions and awareness; G89.29 Other chronic pain; R51.9 Headache, unspecified; Z79.899 Other long term (current) drug therapy | CPT/HCPCS: 99212 ==

== ENCOUNTER 2024-07-08 11:39 | Outpatient (REF) | payer OTHER, SELFPAY ==
--- OUTSIDE RECORDS SUMMARY | 2024-07-08 14:27 | XMS_ITS | Clinical Summary ---
Author Organization [address] [facility] Address [address] [place] [address] Phone Care Team Providers Care Spar Machine Operator Helper Name Role Phone Kimberli Mtz MD Primary Care Provider Allergies Active Allergy Reactions Criticality Noted Date [...] obesity Endometrial carcinoma 02/22/2021 Overview (02/11/2024): 02/17 [facility] BSO COVID-19 virus infection 07/06/2020 Overview [...] 06/23/2020 Overview (02/11/2024): On CPAP, managed in [place] on [facility], [facility] Retinoblastoma 06/23/2020 Overview (02/11/2024): [...] involving bone KNEE ARTHROSCOPY 2007 Right PROCEDURE: NM ARTHROSCOPY AID TX SPINE&/FX KNEE W/O FIXJ HYSTEROSCOPY 04/28/2016 PROCEDURE: NM HYSTEROSCOPY BX ENDOMETRIUM&/POLYPC W/WO D&C; COMMENT: Polypectomy, endometrial ablation OTHER SURGICAL HISTORY 01/2021 PROCEDURE: NM TOTAL ABDOMINAL HYSTERECT W/WO RMVL TUBE OVARY; COMMENT: with BSO, endometrial carcinoma Medical History Medical History Date Comments Hypothyroid DX:Hypothyroid Asthma DX:Asthma COVID-19 virus infection 07/06/2020 DX:COVI D-19 virus infection; COMMENT: Tested positive on 07/06/2020 Endometrial carcinoma (CMS/HCC) 02/22/2021 DX:Endometrial carcinoma (HCC); COMMENT: 02/17 [facility] BSO Family History Medical History Relation [...] Procedure Name Priority Date/Time Associated Diagnosis Comments [facility] SCREENING DIGITAL Routine 07/18/2023 [...] AM EDT Narrative 07/18/2023 3:35 PM EDT [facility] Diagnostic Imaging Department [address] [place], [place] [id number] Patient: ??SUSAN HOBBS ?/Age/Sex: 1975 - 47 - F Unit#: ??[id number] ? Location/Status: ??SPDIMAM/REG CLI ? Mnemonic/Ordering Site: [...] and MLO projections. Computer aided detection with [employer] 3D 3.1 was employed. TISSUE DENSITY: b. [...] Dic Date/Time: ??07/18/23 1534 Sign date/Time: ??07/18/23 1531 Procedure Note Shanelle Aguero MD - 12/17/2023 [facility] Diagnostic Imaging Department [address] [place] [id number] Patient: SUSAN HOBBS /Age/Sex: 1975 - 47 - F Unit#: [id number] Location/Status: SPDIMAM/REG CLI Mnemonic/Ordering Site: [facility] Ordering Physician: KIMBERLI MTZ MD [facility] Screening Digital - 07/18/23 - 1123 Report Status:Signed EXAM: [facility] Screening Digital EXAM DATE AND TIME: 07/18/2023 11:24 AM HISTORY: Screening. Personal history of endometrial carcinoma. Familyhistory of breast carcinoma including sister at age 49, maternal aunt andmaternal grandmother. COMPARISON: 05/08/22, 11/02/21, 05/03/21, 04/03/18 TECHNIQUE: Bilateral digital breast tomosynthesis was performed in the CCand MLO projections. Computer aided detection with [employer] 3D 3.1was employed. TISSUE DENSITY: b. There [...] HM Urine Albumin Creatinine Ratio (07/12/2022) Pathologist [facility] Urine Albumin Creatinine Ratio Abstracted Historical Provider HEALTH MAINTENANCE Final Result * (ABNORMAL) Hemoglobin A1c (05/24/2022) Pathologist [facility] Hemoglobin A1C 6.8(A) <=6.5 % Blood Venous blood specimen / Unknown [facility] Provider LAB BLOOD ORDERABLES Clarice l Result * Annual BMP Blood Test (03/20/2022) Pathologist [facility] Annual BMP Blood Test Abstracted [facility] Provider HEALTH MAINTENANCE Final Result * (ABNORMAL) Lipid panel (03/20/2022) Pathologist [facility] LDL/HDL Ratio 5(A) 0 - 4 Triglycerides 175(A) 0 - 150 mg/dL Cholesterol 236(A) 0 - 200 mg/dL HDL 52 >=40 mg/dL LDL Cholesterol 149(A) 0 - 100 mg/dL Blood Venous blood specimen / Unknown Result [facility] Provider LAB BLOOD ORDERABLES Clarice l Result from Last 3 Months or Most Recently Relevant to Health Maintenance Insurance [facility] [facility] Advance Directives Documents on File Type Date Recorded Patient Unleavened Dough Mixer Expl anation Health Care Decision (hx) 02/09/2021 [...] DIRECTIVE Health Care Decision (hx) 02/09/2021 AD REYSE DIRECTIVE Health Care Decision (hx) 02/09/2021 AD REYES DIRECTIVE Health Care Decision (hx) 02/09/2021 AD REYES DIRECTIVE Health Care Decision (hx) 02/09/2021 AD REYES DIRECTIVE Health Care Decision (hx) 02/09/2021 AD REYES DIRECTIVE Health Care Decision (hx) 02/09/2021 AD REYES DIRECTIVE Health Care Decision (hx) 02/09/2021 AD REYES DIRECTIVE Health Care Decision (hx) 02/09/2021 AD REYES DIRECTIVE Care Teams Spar Machine Operator Helper Relationship Specialty Start Date End Date Kimberli Mtz MD [address] [place] [address] PCP - General Internal Medicine 09/10/20
[2024-07-12 16:08] LABS: Acetylcholine Receptor Binding <0.30 nmol/L
[2024-07-12 21:24] LABS: Acetylcholine Recept. Blocking <15 (<15)
[2024-07-15 17:13] LABS: Acetylcholine Recep Modulating 16
== END 2024-07-08 11:40 | disposition home or self-care (01) ==
LOC: HO.HMGCLDS 11:39
PROVIDERS: PCP Internal Medicine; Visit Provider Nurse Practitioner Family
DX: G51.4 Facial myokymia (principal); R53.1 Weakness; R06.02 Shortness of breath; H53.2 Diplopia
CPT/HCPCS: 36415; 86041; 86042; 86043; 86366

== ENCOUNTER 2024-07-29 16:00 | Outpatient (RCR) | payer OTHER, SELFPAY ==
--- NOTE | 2024-07-16 13:46 | MHC.PT.EP ---
[facility] [place] [facility] [place] [facility] [place] Office [address] Navdeep Chu [address] [phone] F: [phone] F: [phone] F: [phone] F: [phone] Physical Therapy Plan of Care Date of Evaluation: 07/16/24 Date of Surgery: Diagnosis: This is a 48 yo female presenting to skilled PT with a script for muscle spasm of back. Assessment: This is a 48 yo female presenting to skilled PT with a script for muscle spasm of back. Patient reporting new x-rays with diagnosis of stenosis and disc issues cervical through lumbar. Pain has been ongoing for many years progressively getting worse, insidious onset. Pain is located centralized, constant, achy in nature but can get sharp at times. Pain increases with walking more than 100 steps, bending forward, dishes, and sleeping (pain is worse at night). Pain does not improve with anything. Patient has done PT and chiropractor (but not probably for the last 20 years) for her back, heat and ice. She has also tried medications for pain relief. She has not seen a back specialist. Of note, she is undergoing testing for myasthenia gravis per the last note from the referring MD. The patient also reports knee OA and L shoulder labral/bicep tear as well. Assessment reveals pain that ranges from up to a 10/10 at the worst. Patient demos decreased lumbar, thoracic and B LE ROM, strength of B LE's, core and back, TTP at L5/S1, L side lumbar soft tissues and impaired posture with forward head and rounded shoulders as well as excessive lumbar lordosis. Based on functional limitations, impaired QOL and pain tolerance patient is a good candidate for skilled PT 2x/wk for 4wks. Frequency and Duration: The patient will be seen 2x/wk for 4wks Short Term Goals: Pt will demonstrate improved postural awareness and understanding of core engagement with supine and standing tasks without cues throughout session to improve overall back safety in 2 weeks. Pt will demonstrate centralization of sx in 2 weeks. Pt will continue to reinforce precautions, sitting, standing and ADL modifications with proper body mechanics in 2 wks. Skilled Nursing Goals: Pt will demonstrate improved outcome measure by 5 points in 4 weeks for improved functional mobility. Pt will demonstrate ability to bend and lift WNL min to no pain for household tasks in 4 wks. Pt will be I in HEP and compliant in 4wks Treatment Plan: Modalities to reduce pain, spasms and effusion. Manual therapy to restore motion and function. Therapeutic exercise to improve strength and flexibility. Neuromuscular re-education for posture and balance. Therapeutic activities to return to functional activities of daily living. Electronically signed by: Brittany Purcell PT Please sign and return to therapist. Thank you for your referral.
--- NOTE | 2024-08-29 12:23 | MHC.PT.DC ---
[facility] [place] Office Deputy Office [place] [facility] [address] Navdeep Chu [address] [phone] F: [phone] F: [phone] F: [phone] F: [phone] Physical Therapy Discharge Report Diagnosis: This is a 48 yo female presenting to skilled PT with a script for muscle spasm of back. Date of Surgery: Date of Evaluation: 07/16/24 Date of Discharge: 08/29/24 Treatments to Date: 3 Cancellations to Date: 0 No Shows to Date: 0 Discharge Status: Patient Elected to Stop Recommend MD Follow-up Discharge Summary: Patient came to 3 sessions of PT and cancelled remaining. We were having a hard time progressing due to multiple aches and various pains. Patient's chart was left open for 30 days and then DC'd when no further appointments were made. Patient has a good HEP to continue in the mean time. DC to HEP and recommend MD follow up. Electronically signed by: Brittany Purcell PT Please sign and return to therapist. Thank you for your referral.
== END 2024-08-29 12:23 | disposition home or self-care (01) ==
LOC: HO.PTCHIC 16:00
PROVIDERS: PCP Internal Medicine; Visit Provider Nurse Practitioner Family
DX: M62.830 Muscle spasm of back (principal); M54.9 Dorsalgia, unspecified
CPT/HCPCS: 97110; 97162

== ENCOUNTER 2024-12-31 14:17 | Outpatient (AMB) | payer OTHER, SELFPAY ==
[2024-12-31 14:28] VITALS: BP 100/70; PULSE 62; O2SAT 95; BMI 56.5
--- NOTE | 2024-12-31 14:28 | A.OFFVIS_ITS ---
Vital Signs 12/31/24 14:28 Height 5 ft 1 in Weight 299 lb BMI 56.5 BP 100/70 Blood Pressure Location Rt brachial Position Sitting Pulse 62 Pulse Source Pulse Oximeter Pulse Oximetry (%) 95 Oxygen Delivery Method Room Air Intake Visit Reasons: 6 mnts f/u appt Intake Note: Patient presents follow up Cervicalgia Labs/EMG in chart Commodity Management Specialist Required: No Accompanied by: Self / Same As Patient Allergies adhesive Allergy (Intermediate, Verified 12/31/24 14:32) Unknown codeine Allergy (Intermediate, Verified 12/31/24 14:32) Unknown Medication List - Last Reconciled 12/31/24 by JUANITA Harding albuterol sulfate 90 mcg/actuation (ProAir HFA) 2 puffs inhalation Q6H PRN baclofen 20 mg (2 x 10 mg) PO BEDTIME 90 days cholecalciferol (vitamin D3) 25 mcg PO DAILY 30 days diphenhydramine HCl (Benadryl Allergy) 25 mg PO BID PRN dulaglutide (Trulicity) 0.75 mg subcut QWEEK epinephrine 0.3 mL IM fluticasone propion-salmeterol 115-21 mcg/actuation (Advair HFA) 2 puffs inhalation BID magnesium oxide 400 mg PO BEDTIME 90 days HPI Comments Details: The patient is a 49-year-old female presenting with headaches, back pain. Pt reports she was recently started on trulicity for diabetes management. She did try PT- but it aggravated her upper and mid-back, and her knee pain. 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 This headache was different than her typical headache in that the pain was not localize to a location, in terms of the pain moving all over her head. Typical headaches occur twice a month and vary in intensity, likely worsened by stress. She stopped the diclofenac, as it was in the house ineffective. She continues to have cognitive difficulties, word swapping/word finding difficulties. Since the last visit, the anti-ACH and anti-Musk Ab testing was negative. Her breathing has been better. She continues to have difficulty swallowing- mostly w/ solid food or pills. Has a h/o GERD and vocal cord dysfunction- dx'd after evaluation for voice hoarseness which has improved. Notes the GERD s/s have also lessened. Previous Diagnostic results 06/17/2023: * XR Cervical: Marginal osteophyte formation at C4-5 C5-6 and to a lesser extent C6-7 more conspicuous at C5-6. * XR thoracic: No acute findings thoracic spine. Mild diffuse disc degeneration. * XR Lumbar: Normal facet alignment. No pars defects. Minimal facet degeneration L4-5 and L5-S1. Mild disc space degeneration L5-S1. 01/04/2024, BUE EMG/NCS- normal 12/19/2023 HPI: Pt denies any significant interval medical changes. Pt reports her headaches are well-controlled on Magnesium and Baclofen. She has stopped Riboflavin. Baseline headache characteristics: Often stabbing/pulsating right sided headache a/w photophobia- stabs subsides and stabs again. Lasts 15 min to 1-2 hrs She does still have neck pain. Can have neck tightness, stiffness, soreness, and crunching. The pain may radiate into her left collarbone region. Sometimes she has mid-posterior neck or mid-back electrical pain that moves up into the upper neck, rarely has moved into the base of the head which caused a headache. She has been noticing mid-back muscle spasms in the last 3-4 months. Her right eye has also been twitching recently. Does have some left hand weakness and numbness x's 6-7 months, and then started having left pins/needles/pain r/t left 1st finger nodule and left shoulder labrum/bicep tear. She is f/b [facility]. Denies other muscle cramps. States her STM comes and goes, mixes her words up more. . [facility] Medical History (Updated 12/31/24 @ 18:13 by JUANITA Harding) Anemia Chronic headaches GERD (gastroesophageal reflux disease) Endometrial cancer Retinoblastoma, bilateral Obstructive sleep apnea on CPAP Hypothyroid Obesity Surgical History H/O: hysterectomy H/O right knee surgery History of facial surgery Family History Mother Diabetes H/O eye surgery Father Diabetes Lung cancer Sister Leiomyosarcoma Social History Alcohol intake: current Alcohol intake frequency: holidays/special occasions only Patient Tobacco Use Status: Never used Tobacco Physical Exam Vital Signs: Last Vital Signs Pulse 62 12/31/24 14:28 BP 100/70 12/31/24 14:28 Pulse Ox 95 12/31/24 14:28 Oxygen Delivery Method Room Air 12/31/24 14:28 BMI result Body Mass Index 56.5 Const General: cooperative and no acute distress Orientation/consciousness: patient oriented x3 Resp Effort & Inspection: normal respiratory effort and able to speak in complete sentences Neuro General: patient oriented x3 Cranial nerves: Yes CN's II-XII intact bilaterally (w/ exception of dysconjugate gaze w/o diplopia) Cognition (Neuro): normal cognition Psych Appearance: grossly normal Mental Status: mental status grossly normal Speech and movement: Normal speech and movement present Affect: normal affect Attitude: cooperative Assessment & Plan Assessment & Plan (1) Diplopia: Code(s): H53.2 - Diplopia Category: Medical (2) Cervicalgia: Code(s): M54.2 - Cervicalgia Category: Medical (3) Pain and numbness of left upper extremity: Code(s): M79.602 - Pain in left arm; R20.0 - Anesthesia of skin Category: Medical (4) Cognitive change: Comment: multifactorial, poor sleep, mood disorder etc Code(s): R41.89 - Other symptoms and signs involving cognitive functions and awareness Category: Medical (5) Chronic headaches: Comment: likely cervicogenic versus migraine without aura Code(s): R51.9 - Headache, unspecified; G89.29 - Other chronic pain Category: Medical Qualifiers: Headache type: unspecified Intractability: not intractable Qualified Code(s): R51.9 - Headache, unspecified; G89.29 - Other chronic pain Plan For episodes of SOB, weakness, swallowing difficulties in the setting of h/o chronic GERD, vocal cord dysfunction: * Anti ANNABELLA HR and Anti-MuSK antibody negative * SOB symptoms improved * Follow-up with pulmonology as scheduled * We will request GI consult * Advised patient to contact ENT, who she sees for hearing loss, to discuss swallowing issues For back pain: * Patient has stopped PT-not tolerated * Continue baclofen 20 mg q.h.s. PRN For stabbing headache: * Patient has stopped Riboflavin 400mg qam * Continue Magnesium 400mg qhs. * Patient has stopped diclofenac- states was ineffective * Trial Sumatriptan 100mg tab, 1/2 - 1 tab (50-100mg) at onset of headache, may repeat in 2 hours. Max of 2 tabs (200mg) per 24 hours. * May take sumatriptan with diclofenac 50 mg or OTC Tylenol 650-1,000mg every 4-6 hours, Ibuprofen (liquid gels) 600mg every 6 hours, or Naproxen (liquid gels) 440mg q 12 hrs prn. * Potential adverse effects of triptans, include but are not limited to nausea, fatigue, chest tightness/tingling (usually passes within a few minutes), medication overuse headaches. For cognition: * We will request comprehensive neuropsych evaluation Will follow-up upon review of above and patient to follow-up in clinic in 6 months or sooner prn. Orders: Referrals Gastroenterology Referral J38.3 - Other diseases of vocal cords, K21.9 - Gastro-esophageal reflux disease without esophagitis, R13.10 - Dysphagia, unspecified Neuropsychiatry Referral R41.89 - Other symptoms and signs involving cognitive functions and awareness Medications: New sumatriptan succinate 50 - 100 mg orally at onset of headache, may repeat in 2 hrs PRN; max 2 tabs per day or 4 tabs/week (may take with Ibuprofen) 12 tabs 6RF migraine headache 30 days Refilled baclofen 20 mg (2 x 10 mg) PO BEDTIME 180 tabs 1RF 90 days Coding Level of Care Code Est Pt Level 4 (59617) Diagnoses Diplopia H53.2 Cervicalgia M54.2 Pain and numbness of left upper extremity M79.602; R20.0 Cognitive change R41.89 Chronic nonintractable headache, unspecified headache type R51.9; G89.29 Headache type: unspecified Intractability: not intractable
--- OUTSIDE RECORDS SUMMARY | 2024-12-31 16:37 | XMS_ITS ---
Author Name [facility] Organization Unknown Care Team Organization Name Specialty Phone Email Start Date End Da te [facility] Chanelle [facility] 03/07/2022 4
--- OUTSIDE RECORDS SUMMARY | 2024-12-31 16:37 | XMS_ITS | Clinical Summary ---
Author Organization [facility] Address [address] [place] [phone] Phone Care Team Providers Care Street Cleaner Name Role Phone Iram Magana MD Primary Care Provider [phone] Allergies Active Allergy Reactions Criticality Noted Date Comments Codeine 07/13/2016 Medications levothyroxine (SYNTHROID,LEVOT HROID) 25 MCG tablet Take by mouth. Active Active Problems Problem Noted Date Diagnosed Date Family history of breast cancer 03/14/2018 Family History Medical History Relation Comments Basal cell carcinoma Father Breast cancer Maternal Aunt Basal cell carcinoma Mother Breast cancer Paternal Grandmother Breast cancer Sister Relation Status Comments Father Maternal Aunt Mother Alive Paternal Grandmother Sister Social History Tobacco Use Types Packs/Day Years Used Date Smoking Tobacco: Never Smokeless Tobacco: Never Alcohol Use Standard Drinks/Week Comments Yes 0 (1 standard drink = 0.6 oz pur e alcohol) occasional Education Answer Date Recorded Are you interested in more education? Not on peter e 08/25/2022 Are you concerned about learning? Not on file 08/25/2022 No 08/25/2022 No 08/25/2022 Digital Access Answer Date Recorded No 09/25/2022 No 09/25/2022 No 09/25/2022 Reliable internet access at home? Not on file 09/25/2022 Device with a working camera? Not on file Comments No Sex and Gender Information Value Date Recorded Sex Assigned at Not on file Legal Sex Female 3:56 AM EST Gender Identity Not on file Sexual Orientation Not on file Last Filed Vital Signs Vital Sign Reading Time Taken Comments Blood Pressure 102/60 03/14/2018 1:45 PM EST Pulse - - Temperature - - Respiratory Rate - - Oxygen Saturation - - Inhaled Oxygen Concentration - - Weight 129.1 kg (284 lb 11.2 oz) 03/14/2018 1:45 PM EST Height 154.9 cm (5' 1 ) 03/14/2018 1:45 PM EST Body Mass Index 53.79 03/14/2018 1:45 PM EST Plan of Treatment Health Maintenance Due Date Last Done Comments Adult Td,Tdap Booster 1975 LIPID PANEL 1976 TSH LEVEL 1976 DEPRESSION SCREENING 1988 HEPATITIS C SCREENING 1994 HIV ONE-TIME SCREENING (18-6 5 YEARS) 1994 MAMMOGRAM 04/03/2020 04/03/2018 PAP SMEAR 03/14/2021 03/14/2018, 03/14/2018 COLOGUARD 2021 COLONOSCOPY 2021 COLORECTAL CANCER SCREENING 2021 FIT TEST 2021 FOBT 2021 SIGMOIDOSCOPY 2021 VIRTUAL COLONOSCOPY 2021 COVID-19 VACCINE (3 - 2023-2 5 season) 2023 09/08/2020, 08/18/2020 INFLUENZA VACCINE (#1) 2024 02/05/2020 SMOKING STATUS SCREENING (On ce After 26 Yrs) Completed 03/14/2018 HEPATITIS A VACCINES Aged Out No long er eligible based on patient's age to complete this topic HIB VACCINES Aged Out No longer eligi ble based on patient's age to complete this topic MENINGOCOCCAL VACCINES (ACWY) Aged Out No longer eligible based on patient's age to complete this topic MENINGOCOCCAL VACCINES (B) Aged Out N o longer eligible based on patient's age to complete this topic PNEUMOCOCCAL VACCINES (0-49 years) Aged Out No longer eligible b ased on patient's age to complete this topic Medical Devices Not on file Procedures Procedure Name Priority Date/Time Associated Diagnosis Comments BI MAMMOGRAM SCREENING WITH TOMOSYNTHESIS WITH CAD (BILATERAL) Routine 04/03/2018 3:45 PM EST Family history of breast cancer PAP TEST Routine 03/14/2018 12:00 AM EST from Last 3 Months or Most Recently Relevant to Health Maintenance Results * BI MAMMOGRAM SCREENING WITH TOMOSYNTHESIS WITH CAD (BILATERAL) (04/03/2018 3:45 PM EST) Anatomical Region Laterality Modality Breast Left, Breast Right, Breast Bilateral Bila teral Mammography 04/03/2018 2:44 PM EST Impressions 04/03/2018 3:08 PM EST No mammographic evidence of malignancy. Recommend routine annual surveillance. BI-RADS CATEGORY: 2 - Benign finding. DENSITY: There are scattered fibroglandular densities. POS - CDHMAMA Narrative 04/03/2018 3:08 PM EST 42-year-old female with no current breast symptoms. No priors available. This is a baseline exam. Interpretation made in conjunction with computer-aided detection and tomosynthesis. There are scattered areas of fibroglandular density. There is a small circumscribed lobulated mass in the upper outer right breast likely represent a lymph node. There are no suspicious masses, areas of architectural distortion, or suspicious clusters of microcalcifications. Procedure Note Wanda Meza MD - 04/04/2018 42-year-old female with no current breast symptoms. No priors available.This is a baseline exam. Interpretation made in conjunction withcomputer-aided detection and tomosynthesis. There are scattered areas of fibroglandular density. There is a smallcircumscribed lobulated mass in the upper outer right breast likelyrepresent a lymph node. There are no suspicious masses, areas of architectural distortion, orsuspicious clusters of microcalcifications. IMPRESSION: No mammographic evidence of malignancy. Recommend routine annualsurveillance. BI-RADS CATEGORY: 2 - Benign finding. DENSITY: There are scattered fibroglandular densities. POS - CDHMAMA Cheko Green MD IMG MG EXAMS Final Result * Pap Smear (03/14/2018 12:00 AM EST) 03/14/2018 03/15/2018 1:4 7 PM EST Narrative SEE NARRATIVE - 03/26/2018 1:04 PM EST [address] [address] Accounting Manager: Janet Zhou MD SPECIMEN PREPARATION ASSISTANT Cytology Report FINAL DIAGNOSIS A. PAP SMEAR (SUREPATH) CE: SPECIMEN ADEQUACY: Satisfactory for evaluation; transformation zone absent/insufficient. INTERPRETATION: NEGATIVE FOR INTRAEPITHELIAL LESION OR MALIGNANCY. Coccobacilli consistent with shift in ranjana Electronically Signed Out By: YAMIL Infante(ASCP) The Pap test is a screening test primarily for squamous cancers and precursors and has associated false-negative and false-positive results. New technologies such as liquid-based preparations may decrease but will not eliminate all false-negative results. Regular sampling and follow-up of unexplained clinical signs and symptoms are recommended to minimize false negative results. CLINICAL HISTORY Date of Last Menstrual Period: Not Provided Menstrual History: Unknown Other Clinical Conditions: Screening Pap SPECIMEN SOURCE A: PAP SMEAR (SUREPATH) CE Patient Name: SUSAN HOBBS : 1975 (Age: 42) Sex: F [facility] Location: [facility] Date of Collection: 03/14/2018 Date of Reported: 03/26/2018 13:04 Results to: Cheko Green MD Cheko Green MD CYTOLOGY ORDERABLES Final Resul t SEE NARRATIVE from Last 3 Months or Most Recently Relevant to Health Maintenance Insurance [facility] Loyalize [facility] [employer] [facility] Member Subscriber Plan / Payer (Ef fective 2019-Present) Name:Susan Hobbs A Relation to Subscriber:Self Name:Hobbs, Susan A Payer ID:[id number] Group ID:[id number] Type:Medicaid Address: [place] [id number] [facility] [place] [place] [address] [place] [address] [employer]ize [employer] [facility] [employer] Care Teams Street Cleaner Relationship Specialty Start Date End Date Iram Magana MD [address] [place] [id number] PCP - General 07/10/19 Additional Source Comments The information contained in this document represents components of the legal health record. It is not the complete legal health record.[facility]
--- OUTSIDE RECORDS SUMMARY | 2024-12-31 16:37 | XMS_ITS | Clinical Summary ---
Author Organization 175 [facility] Address [address] [place] [address] Phone Care Team Providers Care Corrective Therapy Aide Teacher Name Role Phone Chanelle Mtz MD Primary Care Provider [phone] Allergies Active Allergy Reactions Criticality Noted Date Comments Adhesive Rash 06/20/2022 Surgical adhesives Codeine 07/13/2016 Metformin Diarrhea 12/18/2024 Medications albuterol HFA (PROAIR HFA ; PROVENTIL HFA ; VENTOLIN HFA) 90 mcg/actuation inhaler Inhale 2 Puffs into the lungs every 4 hours as needed. Active EPINEPHrine (EpiPen 2-Abraham) 0.3 mg/0.3 mL injection Inject 0.3 mg into the muscle as needed for Other (anaphylactic reaction). 2-pack. Fill with whichever brand is covered by insurance. 2 Active magnesium oxide (MAG-OX) 400 mg magnesium tablet Take 1 Tablet by mouth daily. Active baclofen (LIORESAL) 10 mg tablet 5 Active Advair HFA 115-21 mcg/actuation inhaler 5 Active Vitamin D3 25 mcg (1,000 unit) capsule Take 1 capsule (1,000 Units total) by mouth 1 (one) time each day. 5 Active dulaglutide (TRULICITY) 0.75 mg/0.5 mL pen injector injectionIndica tions:Type 2 diabetes mellitus with morbid obesity (CMS/HCC V24, CMS/HCC V28) Inject 0.5 mL (0.75 mg total) under the skin every 7 (seven) days. 6 mL 1 Active Active Problems Problem Noted Date Diagnosed Date Cervical stenosis of spine 12/03/2024 Overview (12/03/2024): Neck and lower back Primary osteoarthritis of right knee 03/10/2024 Morbid obesity with BMI of 5 0.0-59.9, adult ([facility] V24, [facility] V28) 02/11/2024 Hyperlipidemia 03/20/2022 Type 2 diabetes mellitus wit h morbid obesity ([facility] V24, [facility] V28) 03/20/2022 History of uterine cancer 02/22/2021 Overview (02/11/2024): 02/17 [facility] BSO COVID-19 virus infection 07/06/2020 Overview (02/11/2024): [...] 06/23/2020 Overview (02/11/2024): On CPAP, managed [place] [facility] History of retinoblastoma 06/23/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 Diagnosed at , s/p radiation. Follows with eye doctor Venous insufficiency of both lower extremities 0 06/23/2020 Resolved Problems Problem Noted Date Diagnosed Date Resolved Date Chronic pain of right knee 03/10/2024 0 12/18/2024 Encounters Date Type Department Care Team Description 12/24/2024 11:15 AM EDT - 12/24/2024 11:59 PM EDT Hospital Encounter [facility] [address] [place] [phone] Encounter for screening mammogram for breast cancer Discharge Disposition: Home or Self Care 12/24/2024 10:30 AM EDT Office Visit Orthopedic Surgery [facility] [address] [phone] Franchesca Rea PA Primary osteoarthritis of right knee (Primary Dx); Chronic pain of right knee 12/18/2024 8:30 AM EDT Office Visit Adult Medicine [address] [phone] Chanelle Mtz MD Other hyperlipidemia (Primary Dx); Acquired hypothyroidism; Moderate persistent asthma without complication; Type 2 diabetes mellitus with morbid obesity (CMS/HCC V24, CMS/HCC V28); Morbid obesity with BMI of 50.0-59.9, adult (CMS/HCC V24, CMS/HCC V28) 12/01/2024 1:30 PM EDT Office Visit [address] [phone] Doris Shah PA Annual physical exam (Primary Dx); History of uterine cancer; Type 2 diabetes mellitus with morbid obesity (CMS/HCC V24, CMS/HCC V28); Hypothyroidism, unspecified type; Mixed hyperlipidemia; Need for hepatitis C screening test 10/17/2024 Telephone Orthopedic Surgery [facility] [address] [phone] Franchesca Rea PA from Last 3 Months Immunizations Name Administration Dates Next Due Influenza Quadrivalent, 0.5m l, preservative free (Fluarix; FluLaval; Fluzone) ages 6mo and older (Afluria) 3yo and older 02/05/2020 Influenza trivalent, 0.5mL, preservative free (Fluarix; FluLaval; Fluzone) ages 6mo and older (Afluria) 3 years and older 02/05/2020 Pneumococcal polysaccharide 23 valent (Pneumovax 23) 2yo and older 05/24/2022 Tdap Tetanus diptheria acell ular pertussis (Boostrix; Adacel) 7yo and older 07/12/2022 Surgical History Surgery Date Site/Laterality Comments FACIAL COSMETIC SURGERY 04/30/1984 - 04/29/1985 4 cosmetic surgeries due to radiation, involving bone KNEE ARTHROSCOPY 04/30/2007 - 04/29/2008 Right HYSTEROSCOPY 04/28/2016 : Polypectomy, endometrial ablation HYSTERECTOMY 01/28/2021 - 02/27/2021 with BSO, endometrial carcinoma SCR MAMMO BI INCL CAD 07/08/2023 Bilateral COLONOSCOPY 08/23/2022 Medical History Medical History Date Comments Hypothyroid Asthma COVID-19 virus infection 07/06/2020 Tested positive on 07/06/2020 Endometrial carcinoma (CMS/H CC V24, CMS/HCC V28) 02/22/202102/17 [facility] Family History Medical History Relation Name Comments Diabetes Father lung cancer (+t obacco, age 63/64), basal cell carcinoma Retinoblastoma Maternal Grandfather Breast cancer Maternal Grandmother latera lity? Diabetes Mother retinoblastoma, HLD, neuropathy, basal cell carcinoma Cancer Mother's Sister origin uncle ar from breast or lung Suicide Completion Paternal Grandfather spinal cancer Paternal Grandmother Breast cancer Sister 1 s/p hysterecto my hormone induced ca Retinoblastoma Sister 2 Leiomyosarcom a Relation Name Status Comments Father Maternal Grandfather Maternal Grandmother Mother Alive Mother's Sister Paternal Grandfather Paternal Grandmother Sister 1 Alive Sister 2 Social History Tobacco Use Types Packs/Day Years Used Date Smoking Tobacco: Never Smokeless Tobacco: Never Tobacco Cessation:Counseling Given: Not Answered Alcohol Use Standard Drinks/Week Comments Yes 0 (1 standard drink = 0.6 oz pur e alcohol) 2 drinks 1-2x per month Housing Instability Answer Date Recorde d Are you worried that in the next 2 months you may not have stable housing? Patient declined 11/26/2024 Food Access & Nutrition Answer Date Rec orded Do you have access to a vari ety of food including fruits and vegetables? Patient declined 11/26/2024 Access to Healthcare Answer Date Record ed Within the last 3 months, ho w many times did you visit the emergency department for your medical care? 0 11/26/2024 Health Literacy Answer Date Recorded How often do you need to hav e someone help you when you read instructions, pamphlets, or other written material from your doctor or pharmacy? Never 11/26/2024 Caregiver: How often do you need to have someone help you when you read instructions, pamphlets, or other written material from your doctor or pharmacy? Not on file 11/26/2024 Financial Risk Answer Date Recorded How hard is it for you to pa y for the very basics like food, housing, medical care, and air conditioning / heating? Patient declined 11/26/2024 Transportation Answer Date Recorded Has the lack of transportati on kept you from meetings, work, or from getting things needed for daily living? No Has the lack of transportati on kept you from medical appointments or from getting medications? No 11/26/2024 Social Isolation Answer Date Recorded How often do you feel lonely or isolated from th ose around you? Often 11/26/2024 Food Risk Answer Date Recorded Within the past 12 months we worried whether our food would run out before we got money to buy more. Patient declined 025 Within the past 12 months th e food we bought just didn't last and we didn't have money to get more. Patient declined 10/30 Dependent Care Answer Date Recorded Do you need help finding or paying for care for your loved ones. For example, child therapist or elderly care for an older adult? No 11/26/2024 Education Answer Date Recorded Do you think completing more education or training, like finishing a GED, going to college, or learning a trade, would be helpful for you? No 11/26/2024 Employment and Income Answer Date Recor ded During the last four weeks, have you been actively looking for work? No 11/26/2024 Living Situation Answer Date Recorded What is your living situation? 0 11/26/2024 Education Answer Date Recorded What is the highest level of school you have completed or the highest degree you have received? Associate degree: occupational, technical, or vocational program 12/01/2024 Comments No Sex and Gender Information Value Date Recorded Sex Assigned at Female 11/26/2024 2:11 PM EDT Legal Sex Female 12:03 AM EST Gender Identity Female 11/26/2024 2:11 PM EDT Sexual Orientation Straight 11/26/2024 2: 11 PM EDT Occupation Industry Job Start Date Job End Date Unemployed - since 2019 from [employer]; denies disablity or SSI Not on file Not on file Not on file Obstetrics History Para Term AB IAB SAB Ectopic Multiple Livin g Live Births 0 Last Filed Vital Signs Vital Sign Reading Time Taken Comments Blood Pressure 120/76 12/18/2024 8:33 AM EDT Pulse 103 12/18/2024 8:33 AM EDT Temperature 35.7 C (96.2 F) 12/18/2024 8:33 AM EDT Respiratory Rate 18 12/18/2024 8:33 AM EDT Oxygen Saturation 98% 12/18/2024 8:33 AM EDT Inhaled Oxygen Concentration - - Weight 137 kg (302 lb) 12/18/2024 8:33 AM EDT Height 152.4 cm (5') 12/18/2024 8:33 AM EDT Body Mass Index 58.98 12/18/2024 8:33 AM EDT Plan of Treatment Upcoming Encounters Date Type Department Care Team (Late st Contact Info) Description 03/20/2025 2:30 PM EST Office Visit Adult Medicine [address] [phone] Doris Shah PA [address] [place], [place] Health Maintenance Due Date Last Done Comments Diabetes: Annual Foot Exam 1986 Diabetes: Annual Retina Eye Exam 1986 Hepatitis B Vaccines (1 of 3 - 19+ 3-dose series) 08/02/1995 COVID-19 Vaccine (3 - Pfizer risk series) 10/06/2020 09/08/2020, 08/18/2020 HIV Screening 04/08/2022 Pneumococcal Vaccine: Pediatrics (0 to 5 Years) and At-Risk Patients (6 to 49 Years) (2 of 2 - PCV) 05/24/2023 05/24/2022 Influenza Vaccine (#1) 2024 , 02/05/2020 Diabetes: Blood Sugar Contro l Test (HGBA1C) 06/04/2025 12/02/2024, 05/24/2022 Social Influencers of Health Screening 11/26/2025 11/26/2024 Diabetes: Annual Urine Albumin-Creatinine Ratio (uACR) 12/02/2025 12/02/2024, 07/12/2022 Diabetes: Annual GFR (Glomerular Filtration Rate) 12/02/2025 12/02/2024, 03/20/2022 Breast Cancer Screening 12/24/2026 12/25/19, 07/18/2023, 04/03/2018 Cholesterol Screening (Lipid Panel) 12/02/2029 12/02/2024, 03/20/2022 DTaP,Tdap,and Td Vaccines (2 - Td or Tdap) 07/12/2032 07/12/2022 Colorectal Cancer Screening: Colonoscopy 08/03/2032 08/03/2022 Depression Screening Completed 11/26/2024 Hepatitis C Screening Completed 12/02/2024 HIB Vaccines Aged Out No longer eligi [...] age to complete this topic Meningococcal B Vaccine Aged Out No l onger eligible based on patient's age to complete this topic RSV Immunization Patients Under 20 months Aged Out No longer eligible b ased on patient's age to complete this topic Varicella Vaccines Aged Out No longer eligible based on patient's age to complete this topic Procedures Procedure Name Priority Date/Time Associated Diagnosis Comments MG MAMMO DIGITAL SCREENING W DU BILAT Routine 12/24/2024 11:45 AM EDT Encounter for screening mammogram for breast cancer MICROALBUMIN CREATININE URINE RATIO Routine 12/02/2024 11:05 AM EDT Type 2 diabetes mellitus with morbid obesity ([facility] V24, [facility] V28) COMPREHENSIVE METABOLIC PANEL Routine 12/02/2024 11:05 AM EDT Annual physical exam HEMOGLOBIN A1C Routine 12/02/2024 11:05 AM EDT Type 2 diabetes mellitus with morbid obesity ([facility] V24, [facility] V28) LIPID PANEL WITH REFLEX TO DIRECT LDL Routine 12/02/2024 11:05 AM EDT Mixed hyperlipidemia HEPATITIS C ANTIBODY Routine 12/02/2024 11:05 AM EDT Need for hepatitis C screening test COMPLETE BLOOD COUNT Routine 12/02/2024 11:05 AM EDT Annual physical exam THYROID STIMULATING HORMONE Routine 12/02/2024 11:05 AM EDT Hypothyroidism, unspecified type from Last 3 Months Results * MG Mammo Digital Screening w Du bilat (12/24/2024 11:45 AM EDT) Anatomical Region Laterality Modality Breast Bilateral Mammography 12/24/2024 1:13 PM EDT Impressions 12/25/2024 7:04 AM EDT No mammographic evidence of malignancy. No suspicious interval change. A negative mammogram in the presence of a clinically suspicious palpable abnormality does not preclude the possibility of malignancy or alter the indications for biopsy. ASSESSMENT: BI-RADS 2: BENIGN RECOMMENDATION(S): 1: Routine screening mammogram BILATERAL in 1 year. [facility] [address], [address] -------- FINAL REPORT -------- Dictated By: Anirudh Hamlin Dictated Date: 12/24/2024 13:13 ET Assigned Physician: Anirudh Hamlin Reviewed and Electronically Signed By: Anirudh Hamlin Signed Date: 12/25/2024 07:04 ET Workstation ID: [id number] Transcribed By: Self Edit Transcribed Date: 12/24/2024 13:14 ET Narrative 12/25/2024 7:04 AM EDT EXAM: SCREENING MAMMOGRAPHY, BILATERAL HISTORY: SCREENING. Family history of breast cancer; sister diagnosed age 45, maternal grandmother diagnosed age 60 COMPARISON: 07/18/23, 05/08/22, 05/03/21 TECHNIQUE: Synthesized CC and MLO projections of each breast. Tomosynthesis of each breast in the CC and MLO projections. ADDITIONAL IMAGING: None Computer-aided detection was employed with the [email or web address] AI 3-D. TISSUE DENSITY: There are scattered areas of fibroglandular density. (BI-RADS category B) FINDINGS: RIGHT BREAST: No suspicious mass. No suspicious calcification. No distortion. No additional suspicious right breast findings LEFT BREAST: No suspicious mass. No suspicious calcification. No distortion. There is an equal density 1.6 cm focal asymmetry in the 1 o'clock position 10 cm from the left nipple. This is unchanged. No additional suspicious left breast findings Procedure Note Anirudh Hamlin MD - 12/25/2024 EXAM: SCREENING MAMMOGRAPHY, BILATERAL HISTORY: SCREENING. Family history of breast cancer; sister diagnosedage 45, maternal grandmother diagnosed age 60 COMPARISON: 07/18/23, 05/08/22, 05/03/21 TECHNIQUE: Synthesized CC and MLO projections of each breast.Tomosynthesis of each breast in the CC and MLO projections. ADDITIONAL IMAGING: None Computer-aided detection was employed with the [email or web address] AI 3-D. TISSUE DENSITY: There are scattered areas of fibroglandular density.(BI-RADS category B) FINDINGS: RIGHT BREAST: No suspicious mass. No suspicious calcification. No distortion. Noadditional suspicious right breast findings LEFT BREAST: No suspicious mass. No suspicious calcification. No distortion. There is an equal density 1.6 cm focal asymmetry in the 1 o'clock [id number] cm from the left nipple. This is unchanged. No additional suspicious left breast findings IMPRESSION: No mammographic evidence of malignancy. No suspicious interval change. A negative mammogram in the presence of a clinically suspicious palpableabnormality does not preclude the possibility of malignancy or alter theindications for biopsy. ASSESSMENT: BI-RADS 2: BENIGN RECOMMENDATION(S): 1: Routine screening mammogram BILATERAL in 1 year. Mammography location: [facility] [address] [place], [address] -------- FINAL REPORT -------- Dictated By: Anirudh Hamlin Dictated Date: 12/24/2024 13:13 ET Assigned Physician: Anirudh Hamlin Reviewed and Electronically Signed By: Anirudh Hamlin Signed Date: 12/25/2024 07:04 ET Workstation ID: [id number] Transcribed By: Self Edit Transcribed Date: 12/24/2024 13:14 ET us Self Referral Sppl IMG BI PROCEDURES Final Resul t * Hepatitis C antibody (12/02/2024 11:05 AM EDT) Hepatitis C Antibody Negative Negative LAB CHEMISTRY METHOD 12/02/2024 4:19 PM EDT [facility] Blood Venous blood specimen / Unknown Venipuncture / Unknown 12/02/2024 11:05 AM EDT 12/02/2024 11:05 AM EDT Doris ENGLAND LAB BLOOD ORDERABLES Final Re sult [facility] [address] [place] [address], [place] [phone] * (ABNORMAL) Lipid panel with reflex to direct LDL (12/02/2024 11:05 AM EDT) Cholesterol 204(H) 0 - 200 mg/dL LAB CHEMISTRY METHOD 12/02/2024 3:23 PM EDT [facility] Triglycerides 171(H) 0 - 150 mg/dL LAB CHEMISTRY METHOD 12/02/2024 3:23 PM EDT [facility] HDL 42 >=40 mg/dL LAB CHEMISTRY METHOD 12/02/2024 3:23 PM EDT [facility] LDL Calculated 128(H) 0 - 100 mg/dL LAB CHEMISTRY METHOD 12/02/2024 3:23 PM EDT [facility] Comment:Estimated LDL Calcul ated using equation: Total cholesterol - HDL cholesterol - (Triglycerides/5) VLDL Cholesterol Rich 34.2 mg/dL LAB CHEMISTRY METHOD 12/02/2024 3:23 PM EDT [facility] Non HDL Chol. (LDL+VLDL) 162(H) <145 mg/dL LAB CHEMISTRY METHOD 12/02/2024 3:23 PM EDT [facility] Chol/HDL Ratio 4.9(H) 0.0 - 4.4 LAB CHEMISTRY METHOD 12/02/2024 3:23 PM EDT [facility] Blood Venous blood specimen / Unknown Venipuncture / Unknown 12/02/2024 11:05 AM EDT 12/02/2024 11:05 AM EDT us Doris ENGLAND LAB BLOOD ORDERABLES Final Re sult [facility] [address] [place] [address], * Microalbumin creatinine urine ratio (12/02/2024 11:05 AM EDT) Creatinine, Urine 258.0 mg/dL LAB CHEMISTRY METHOD 12/02/2024 1:28 PM EDT [facility] Microalb, Ur 25.3 0.0 - 29.0 mg/L LAB CHEMISTRY METHOD 12/02/2024 1:28 PM EDT [facility] Microalb/Creat Ratio 10 <30 mg/g creat LAB CHEMISTRY METHOD 12/02/2024 1:28 PM EDT [facility] Urine Urine specimen from urethra / Unknown Non-blood Collection / Unknown 12/02/2024 11:05 AM EDT 12/02/2024 11:05 AM EDT us Doris ENGLAND LAB URINE ORDERABLES Final Re sult [facility] [address] [place] [address], [place] [phone] * (ABNORMAL) Complete blood count (12/02/2024 11:05 AM EDT) WBC 9.6 4.8 - 10.8 K/mcL LAB HEMETOLOGY METHOD 12/02/2024 12:22 PM EDT [facility] RBC 4.90(H) 3.80 - 4.80 M/mcL LAB HEMETOLOGY METHOD 12/02/2024 12:22 PM EDT [facility] Hemoglobin 15.3 11.5 - 16.0 g/dL LAB HEMETOLOGY METHOD 12/02/2024 12:22 PM EDT [facility] Hematocrit 47.6(H) 35.0 - 47.0 % LAB HEMETOLOGY METHOD 12/02/2024 12:22 PM EDT [facility] MCV 97.1 79.0 - 98.0 FL LAB [facility]EMETOLOGY [facility] MCH 31.2 27.0 - 32.0 pcg LAB HEMETOLOGY METHOD 12/02/2024 12:22 PM EDT [facility] MCHC 32.1 32.0 - 37.0 g/dL LAB HEMETOLOGY METHOD 12/02[facility]2024 [facility] RDW 14.9 11.0 - 15.0 % LAB HEMETOLOGY METHOD 12/02/2024 12:22 PM [facility] Platelets 187 130 - 400 K/mcL LAB HEMETOLOGY METHOD 12/02/2024 12:22 PM EDT [facility] MPV 13.0(H) 7.0 - 11.0 FL LAB HEMETOLOGY METHOD 12/02/2024 12:22 PM EDT [facility] NRBC 0.0 <1.0 % LAB HEMETOLOGY METHOD 12/02/2024 12:22 PM EDT [facility] NRBC Absolute 0.00 <0.10 K/mcL LAB HEMETOLOGY METHOD 12/02/2024 12:22 PM EDT [facility] Blood Venous blood specimen / Unknown Venipuncture / Unknown 12/02/2024 11:05 AM EDT 12/02/2024 11:05 AM EDT us Doris ENGLAND LAB BLOOD ORDERABLES Final Re sult Performing Organization Address [facility]/ZIP Co de Phone Number [facility] [address] [place] [address], * (ABNORMAL) Thyroid stimulating hormone (12/02/2024 11:05 AM EDT) TSH 4.37(H) 0.40 - 4.00 mcIU/mL LAB CHEMISTRY METHOD 12/02/2024 4:52 PM EDT [facility] Blood Venous blood specimen / Unknown Venipuncture / Unknown 12/02/2024 11:05 AM EDT 12/02/2024 11:05 AM EDT us Doris ENGLAND LAB BLOOD ORDERABLES Final Re sult [facility] [address] [place] [address], * (ABNORMAL) Hemoglobin A1c (12/02/2024 11:05 AM EDT) Hemoglobin A1C 8.8(H) <6.5 % LAB CHEMISTRY METHOD 12/02/2024 1:29 PM EDT [facility] Mean Bld Glu Estim. 206 mg/dL LAB CHEMISTRY METHOD 12/02/2024 1:29 PM [facility] Blood Venous blood specimen / Unknown Venipuncture / Unknown 12/02/2024 11:05 AM EDT 12/02/2024 11:05 AM EDT us Doris ENGLAND LAB BLOOD ORDERABLES Final Re sult [facility] [address] [place] [address], [place] [phone] * (ABNORMAL) Comprehensive metabolic panel (12/02/2024 11:05 AM EDT) Sodium 138 133 - 145 mmol/L LAB CHEMISTRY METHOD 12/02/2024 3:23 PM [facility] Potassium 3.7 3.5 - 5.5 mmol/L LAB CHEMISTRY METHOD 12/02/2024 3:23 PM [facility] Chloride 105 96 - 110 mmol/L LAB CHEMISTRY METHOD 12/02/2024 3:23 PM [facility] CO2 28 21 - 32 mmol/L LAB CHEMISTRY METHOD 12/02/2024 3:23 PM [facility] Anion Gap 5 3 - 11 LAB CHEMISTRY METHOD 12/02/2024 3:23 PM [facility] Glucose 176(H) 70 - 100 mg/dL LAB CHEMISTRY METHOD 12/02/2024 3:23 PM [facility] BUN 12 5 - 25 mg/dL LAB CHEMISTRY METHOD 12/02/2024 3:23 PM [facility] Creatinine 1.00 0.50 - 1.10 mg/dL LAB CHEMISTRY METHOD 12/02/2024 3:23 PM [facility] eGFR 70 >=60 mL/min/1. 73m2 LAB CHEMISTRY METHOD [facility] Comment:Calculation based on the Chronic Kidney Disease Epidemiology Collaboration (CKD-EPI) equation refit without adjustment for race. BUN/Creatinine Ratio 12.0 LAB CHEMISTRY METHOD 12/02/2024 3:23 PM [facility] Calcium 9.0 8.5 - 10.5 mg/dL LAB CHEMISTRY METHOD 12/02/2024 3:23 PM [facility] AST (SGOT) 32 10 - 42 unit/L LAB CHEMISTRY METHOD 12/02/2024 3:23 PM [facility] ALT (SGPT) 46 10 - 60 unit/L LAB CHEMISTRY METHOD 12/02/2024 3:23 PM [facility] Alkaline Phosphatase 110 42 - 121 unit/L LAB CHEMISTRY METHOD 12/02/2024 3:23 PM [facility] Total Protein 7.6 6.0 - 8.0 g/dL LAB CHEMISTRY METHOD 12/02/2024 3:23 PM [facility] Albumin 4.1 3.2 - 5.0 g/dL LAB CHEMISTRY METHOD 12/02/2024 3:23 PM [facility] Total Bilirubin 0.8 0.0 - 1.4 mg/dL LAB CHEMISTRY METHOD 12/02/2024 3:23 PM [facility] Blood Venous blood specimen / Unknown Venipuncture / Unknown 12/02/2024 11:05 AM EDT 12/02/2024 11:05 AM EDT us Doris ENGLAND LAB BLOOD ORDERABLES Final Re sult [facility] [address] [place] [address], from Last 3 Months Insurance [employer] Advance Directives Documents on File Type Date Recorded Patient Recruiter Account Manager Expl anation Health Care Decision (hx) 02/09/2021 [...] (hx) 02/09/2021 AD REYES DIRECTIVE Care Teams Corrective Therapy Aide Teacher Relationship Specialty Start Date End Date Chanelle Mtz MD [address] [place] [phone] PCP - General Internal Medicine 09/10/20
== END 2024-12-31 15:27 | disposition home or self-care (01) ==
LOC: HO.HSMS 14:17
PROVIDERS: PCP Internal Medicine; Visit Provider Nurse Practitioner Family
DX: H53.2 Diplopia (principal); M54.2 Cervicalgia; M79.602 Pain in left arm; R20.0 Anesthesia of skin; R41.89 Other symptoms and signs involving cognitive functions and awareness; R51.9 Headache, unspecified; G89.29 Other chronic pain
CPT/HCPCS: 99214

== ENCOUNTER → 2024-12-31 14:17 | Outpatient (BNVA) | payer OTHER, SELFPAY | PROVIDERS: PCP Internal Medicine; Visit Provider Nurse Practitioner Family | DX: H53.2 Diplopia (principal); M54.2 Cervicalgia; M79.602 Pain in left arm; R20.0 Anesthesia of skin; R41.89 Other symptoms and signs involving cognitive functions and awareness; R51.9 Headache, unspecified; G89.29 Other chronic pain | CPT/HCPCS: 99212 ==